=== PATIENT | female | born 1975 | race Caucasian/White ===

== ENCOUNTER 2024-04-20 00:07 | Observation (INO) ==
[2024-04-20 00:55] LABS: Hematocrit (blood only) 41.4 % (37.0-47.0); Hemoglobin 14.4 g/dl (12.0-16.0); Mean Corpuscular Hemoglobin 31.3 pg (25.0-34.0); Mean Corpuscular Hgb Conc 34.8 g/dL (32.0-36.0); Mean Platelet Volume 9.1 fL (9.4-12.4); Platelet Count 431 K/uL (130-400); RDW Coefficient of Variation 13.5 % (11.5-14.5); RDW Standard Deviation 44.5 fL (36.4-46.3)
[2024-04-20 00:58] LABS: Appearance Urine Turbid (Clear); Bacteria Urine Automated None Seen (None Seen); Bilirubin Urine Negative (Negative); Blood Urine Negative (Negative); Cast Urine Automated 0-2 /lpf (0-2); Color Urine Yellow; Glucose Urine UA Negative (Negative); Ketones Urine Negative (Negative); Leukocyte Esterase Urine Negative (Negative); Nitrite Urine Negative (Negative); Protein Urine Trace (Negative); RBC Urine Automated 0-2 /hpf (0-2); Specific Gravity Urine 1.015 (1.000-1.030); Urobilinogen Urine Negative (Negative); WBC Urine Automated 0-5 /hpf (0-5); pH Urine >= 9.0 (4.5-7.5)
[2024-04-20 01:10] LABS: Albumin Level 4.3 gm/dl (3.4-5.0); Bilirubin,Total 1.5 mg/dl (0.2-1.0); Calcium 9.3 mg/dl (8.6-10.3); Potassium 3.6 mmol/L (3.5-5.1)
[2024-04-20 01:16] LABS: Albumin Globulin Ratio 1.6 (0.9-2); Creatinine Clr Calc Pharmacy 62.1 ml/min; Globulin 2.7 gm/dl (2.5-4.0)
[2024-04-20 01:21] LABS: Pregnancy Test, Serum Negative (Negative)
[2024-04-20 01:50] LABS: Basophils # (auto) 0.07 K/uL (0.00-0.20); Basophils % (auto) 0.3 %; Eosinophils # (auto) 0.02 K/uL (0.00-0.50); Eosinophils % (auto) 0.1 %; Lymphocytes # (auto) 1.36 K/uL (1.20-3.40); Lymphocytes % (auto) 5.5 %; Neutrophils # (auto) 21.45 K/uL (1.40-6.50); Neutrophils % (auto) 86.1 %; Polychromasia 1+
[2024-04-20] MEDS: HYDROmorphone INJ 0.5 MG/0.5 ML SYR IV STA (02:29)
[2024-04-20] MEDS: ONDANSETRON INJ 2 MG/ML 2 ML VIAL IV STA (02:29)
[2024-04-20] MEDS: KETOROLAC TROMETHAMINE 15 MG/ML VIAL IV STA (02:29)
--- NOTE | 2024-04-20 02:32 | Emergency Department Note ---
Impression & Plan Acute cholecystitis, Elevated LFTs Admit to the [facility] ED Provider Note NAME: SHELTON CESPEDES AGE: 48 SEX: Female INFORMANT: Patient ED PROVIDER(S): Lindsey Murillo DO CHIEF COMPLAINT: Upper abdominal pain PLAN: Disposition: Admit to the [facility] MEDICAL DECISION MAKING: this is a 48-year-old female patient presents emergency department with sudden onset of upper abdominal pain approximately 3 hours ago. Patient then became nauseated and was vomiting acid. She describes having some heartburn after eating fried food earlier this evening. she denies ever having Pain like this in the past. Laboratory studies reveal a white blood cell count of 24.9. H&H were stable. Total bilirubin was 1.5. AST was 395. ALT of 250. Alk phos was 88. Lipase was normal. Urinalysis revealed no signs of infection or significant hematuria. Patient's pain was managed with IV Dilaudid and Toradol. She was bolused with 30 mL/kg of IV fluids per septic protocol. She was treated with IV Zosyn. Patient remained hemodynamically stable. I discussed the case with Dr. Benavides from general surgery and the [facility] and they will consult with GI. Care/management discussed with: cancer registry manager, [facility]ist, general surgery on-call Triage Nursing notes: reviewed and agree With them. Vital Signs: reviewed and unremarkable Differential Diagnosis: acute cholecystitis, pancreatitis, choledocholithiasis, ulcerative disease, perforated viscus, ureteral colic, colitis, gastritis Diagnostics, independently interpreted by me: ECG: Normal sinus rhythm at a rate of [address] segment elevation or signs of ischemia. There is no ectopy. Cardiac Monitoring: normal sinus rhythm at a rate of 71 Imaging studies: right upper quadrant ultrasound: As per [facility] HPI: 48 year old Female arrives for evaluation of upper abdominal pain. she describes sudden onset of upper abdominal pain approximately 3 hours ago. Patient then became nauseated and was vomiting acid. She describes having some heartburn after eating fried food earlier this evening. PAST MEDICAL HISTORY: Hypothyroidism, numbness in her left upper extremity which is being worked up PAST SURGICAL HISTORY: None, SOCIAL HISTORY: Former smoker, HOME MEDICATIONS: See list ALLERGIES: None VITALS: See Below PHYSICAL EXAMINATION: HEENT: Head - normocephalic and atraumatic. Pupils are equal, round, and reactive to light. Extraocular eye muscles are intact, and sclera are anicteric. Nose - moist nasal mucosa without discharge. Mouth - moist buccal mucosa. Oropharynx is nonerythematous and there is no tonsillar exudate or edema noted. Neck: Supple; no cervical and adenopathy or thyromegaly Heart: Regular rate and rhythm. There is a normal S1 and S2 with no murmurs, clicks, or gallops appreciated. Lungs: Clear to auscultation bilaterally with no wheezes, rales, or rhonchi. Abdomen: Soft, exquisite tenderness to palpation in the epigastrium and right upper quadrant with moderate guarding but no rebound or rigidity noted. There are no palpable pulsatile masses or hepatosplenomegaly. Extremities: No evidence of cyanosis, clubbing, or edema. There are easily palpable peripheral pulses. Skin: warm and dry with good turgor and no rashes. Emergency Department treatment: retail pharmacy manager, IV normal saline, IV Zofran, IV Toradol, IV Dilaudid, IV Zosyn Emergency department course: The patient was evaluated in room B-7. A complete history and physical was quickly performed as the patient was in severe pain. An order was placed for continuous cardiac monitoring. The patient was in a normal sinus rhythm at a rate of 71. Twelve-lead EKG was obtained as described above. Patient was medicated with IV Zofran, IV Toradol and IV Dilaudid for her severe pain. She then went for ultrasound of the right upper quadrant to evaluate her gallbladder. This is described below. Upon return from radiology, the patient was noted to have a white blood cell count of greater than 24,000. A septic protocol was then performed and the patient was bolused with 30 mL/kg of IV fluids and started on IV Zosyn after blood cultures were obtained. Patient's blood pressure remained stable and she was much more comfortable after having received the IV analgesia. I discussed the case with the general surgeon on-call-Dr. Benavides and he agreed with discussing the case with internal medicine for admission and also recommended an MRCP and consulting GI because of the elevated LFTs. I discussed this with the [facility] Hospitalist. The patient remained hemodynamically stable and comfortable. Past Med/Surg History Problem List (Updated 04/20/24 @ 16:22 by Lindsey Murillo DO) Encounter for pre-operative examination Elevated LFTs (Acute) Acute cholecystitis (Acute) Medical History (Updated 04/20/24 @ 16:22 by Lindsey Murillo DO) History of use of contraceptive intrauterine device (IUD) Quit smoking within past year Hypothyroid Surgical History (Updated 04/20/24 @ 09:22 by John Aponte MD) Hx of colonoscopy Social History Smoking Status: Former smoker Feels Safe at Home: Yes Allergies Allergies Allergy/AdvReac Type Severity Reaction Status Date / Time No Known Allergies Allergy Unverified 04/20/24 09:13 Home Meds Home Medications Medication Instructions Recorded Confirmed levothyroxine 75 mcg tablet 75 mcg PO DAILY 04/20/24 04/20/24 Results & Data (ED) Vital Signs Vital Signs - 24 hr 04/20/24 00:15 04/20/24 01:57 04/20/24 01:57 Temperature 36.4 C L Temperature Source Temporal Artery Scan Pulse Rate 106 H 71 72 Pulse Rate [Apical] Pulse Rate from SpO2 Sensor Pulse Rhythm Regular Regular Pulse Strength Normal Respiratory Rate 18 19 Respiratory Effort / Characteristics Non-Labored Spontaneous Respiratory Depth Normal Respiratory Pattern Regular Blood Pressure 120/62 Blood Pressure [Right Arm] Blood Pressure Mean 81 Blood Pressure Mean [Right Arm] Blood Pressure Position Sitting Pulse Oximetry 97 98 Oxygen Delivery Method Room Air Room Air Oxygen Flow Rate Sepsis Recent Fever Within 48 Hours No Sepsis New/Unexplained Change in Mental Status N/A Sepsis Action Taken by Nursing No Action Required 04/20/24 02:01 04/20/24 02:30 04/20/24 02:42 Temperature Temperature Source Pulse Rate 80 78 78 Pulse Rate [Apical] Pulse Rate from SpO2 Sensor 79 75 Pulse Rhythm Regular Pulse Strength Respiratory Rate 17 24 22 Respiratory Effort / Characteristics Respiratory Depth Respiratory Pattern Blood Pressure 112/58 L 99/68 L Blood Pressure [Right Arm] Blood Pressure Mean 65 80 Blood Pressure Mean [Right Arm] Blood Pressure Position Pulse Oximetry 98 98 98 Oxygen Delivery Method Room Air Oxygen Flow Rate 0 Sepsis Recent Fever Within 48 Hours Sepsis New/Unexplained Change in Mental Status Sepsis Action Taken by Nursing 04/20/24 03:55 04/20/24 04:56 04/20/24 06:03 Temperature Temperature Source Pulse Rate 73 Pulse Rate [Apical] 80 75 Pulse Rate from SpO2 Sensor Pulse Rhythm Pulse Strength Respiratory Rate 20 20 Respiratory Effort / Characteristics Non-Labored Non-Labored Respiratory Depth Normal Normal Respiratory Pattern Blood Pressure Blood Pressure [Right Arm] 107/69 114/77 Blood Pressure Mean Blood Pressure Mean [Right Arm] 81 89 Blood Pressure Position Pulse Oximetry 96 98 Oxygen Delivery Method Room Air Room Air Oxygen Flow Rate Sepsis Recent Fever Within 48 Hours Sepsis New/Unexplained Change in Mental Status Sepsis Action Taken by Nursing 04/20/24 06:06 Temperature Temperature Source Pulse Rate Pulse Rate [Apical] 68 Pulse Rate from SpO2 Sensor Pulse Rhythm Pulse Strength Respiratory Rate 20 Respiratory Effort / Characteristics Non-Labored Respiratory Depth Normal Respiratory Pattern Blood Pressure Blood Pressure [Right Arm] Blood Pressure Mean Blood Pressure Mean [Right Arm] Blood Pressure Position Pulse Oximetry 98 Oxygen Delivery Method Room Air Oxygen Flow Rate Sepsis Recent Fever Within 48 Hours Sepsis New/Unexplained Change in Mental Status Sepsis Action Taken by Nursing Laboratory Data 04/20/24 10:09 04/20/24 10:09 Lab Results 04/20/24 04/20/24 04/20/24 Range/Units 00:26 03:47 06:12 WBC 24.90 H (4.8-10.8) K/ul RBC 4.60 (4.20-5.40) M/uL Hgb 14.4 (12.0-16.0) g/dl Hct 41.4 (37.0-47.0) % MCV 90.0 (80.0-100.0) fL MCH 31.3 (25.0-34.0) pg MCHC 34.8 (32.0-36.0) g/dL RDW Std Deviation 44.5 (36.4-46.3) fL RDW Coeff of Raj 13.5 (11.5-14.5) % Plt Count 431 H (130-400) K/uL MPV 9.1 L (9.4-12.4) fL Immature Gran % (Auto) 2.0 % Neut % (Auto) 86.1 % Lymph % (Auto) 5.5 % [place] % (Auto) 6.0 % Eos % (Auto) 0.1 % Baso % (Auto) 0.3 % Neut # (Auto) 21.45 H (1.40-6.50) K/uL Lymph # (Auto) 1.36 (1.20-3.40) K/uL [place] # (Auto) 1.50 H (0.11-0.59) K/uL Eos # (Auto) 0.02 (0.00-0.50) K/uL Baso # (Auto) 0.07 (0.00-0.20) K/uL Immature Gran # (Auto) 0.50 H (0.01-0.20) K/uL Polychromasia 1+ Sodium 138 (136-145) mmol/L Potassium 3.6 (3.5-5.1) mmol/L Chloride 102 (98-107) mmol/L Carbon Dioxide 28 (21-32) mmol/L Anion Gap 8 (3-11) BUN 17 (6-23) mg/dl Creatinine 1.00 (0.6-1.2) mg/dl Est Cr Clr Drug Dosing 62.1 ml/min eGFR 69.93 BUN/Creatinine Ratio 17.0 (10-20) Glucose 132 H (70-99(Fasting)) mg/dl Lactate 2.2 H* 1.8 (0.4-2.0) mmol/L Calcium 9.3 (8.6-10.3) mg/dl Total Bilirubin 1.5 H (0.2-1.0) mg/dl AST 395 H (13-39) U/L ALT 250 H (7-52) U/L Alkaline Phosphatase 88 (34-104) U/L Total Protein 7.0 (6.0-8.3) gm/dl Albumin 4.3 (3.4-5.0) gm/dl Globulin 2.7 (2.5-4.0) gm/dl Albumin/Globulin Ratio 1.6 (0.9-2) Lipase 33 (11-82) U/L Procalcitonin < 0.02 (0-0.5) ng/ml HCG, Qual Negative (Negative) Urine Color Yellow Urine Appearance Turbid A (Clear) Urine pH >= 9.0 H (4.5-7.5) Ur Specific [place] 1.015 (1.000-1.030) Urine Protein Trace H (Negative) Urine Glucose (UA) Negative (Negative) Urine Ketones Negative (Negative) Urine Blood Negative (Negative) Urine Nitrite Negative (Negative) Urine Bilirubin Negative (Negative) Urine Urobilinogen Negative (Negative) Ur Leukocyte Esterase Negative (Negative) Urine WBC (Auto) 0-5 (0-5) /hpf Urine RBC (Auto) 0-2 (0-2) /hpf U Hyaline Cast (Auto) 0-2 (0-2) /lpf U Epithel Cells (Auto) 3-5 H (0-2) /hpf Urine Bacteria (Auto) None Seen (None Seen) Administered Medications Sodium Chloride (Nss) 1,000 mls @ 125 mls/hr IV .Q8H [facility] Stop: 04/21/24 07:44 Last Admin: 04/20/24 08:35 Dose: 125 mls/hr Documented By: SRL Piperacillin Sod/Tazobactam Sod (Zosyn) 4.5 gm in 100 mls @ 25 mls/hr IV Q8H [facility]; Protocol Stop: 04/30/24 10:59 Last Admin: 04/20/24 12:04 Dose: 25 mls/hr Documented By: SRL Levothyroxine Sodium (Levothyroxine Sodium 75 Mcg Tablet) 75 mcg PO DAILYBB [facility] Stop: 05/20/24 09:05 Last Admin: 04/20/24 09:48 Dose: 75 mcg Documented By: SRL Discontinued Medications Hydromorphone HCl (Hydromorphone Inj 0.5 Mg/0.5 Ml Syr) 0.5 mg IV NOW [facility] Stop: 04/20/24 02:26 Last Admin: 04/20/24 02:29 Dose: 0.5 mg Documented By: MITA Sodium Chloride (Nss) 1,000 mls @ 999 mls/hr IV .Q1H1M ONE Stop: 04/20/24 04:24 Last Infusion: 04/20/24 04:42 Dose: Infused Documented By: Admin: 04/20/24 03:58 Dose: 999 mls/hr Documented By: ES Piperacillin Sod/Tazobactam Sod (Zosyn) 4.5 gm in 100 mls @ 200 mls/hr IV NOW ONE; Protocol Stop: 04/20/24 03:53 Last Infusion: 04/20/24 04:41 Dose: Infused Documented By: Admin: 04/20/24 04:15 Dose: 200 mls/hr Documented By: ES Sodium Chloride (Nss) 1,000 mls @ 999 mls/hr IV .Q1H1M ONE Stop: 04/20/24 05:13 Last Infusion: 04/20/24 05:19 Dose: Infused Documented By: Admin: 04/20/24 04:17 Dose: 999 mls/hr Documented By: ES Ketorolac Tromethamine (Ketorolac Tromethamine 15 Mg/Ml Vial) 15 mg IV NOW STA Stop: 04/20/24 02:26 Last Admin: 04/20/24 02:29 Dose: 15 mg Documented By: MITA Lorazepam (Lorazepam 2 Mg/1 Ml Vial) 0.5 mg IV NOW STA Stop: 04/20/24 06:49 Last Admin: 04/20/24 07:11 Dose: 0.5 mg Documented By: SRL Lorazepam (Lorazepam 0.5 Mg Tab) 0.5 mg PO ONE ONE Stop: 04/20/24 07:02 Last Admin: 04/20/24 07:09 Dose: Not Given Documented By: SRL Miscellaneous Information (Patient's Allergy Info Needs Entered) 1 each N/A NOW STA Stop: 04/20/24 09:10 Last Admin: 04/20/24 12:03 Dose: Not Given Documented By: L Ondansetron HCl (Ondansetron Inj 2 Mg/Ml 2 Ml Vial) 4 mg IV NOW STA Stop: 04/20/24 02:26 Last Admin: 04/20/24 02:29 Dose: 4 mg Documented By: MITA Imaging Data Radiologist's Impression: Gallbladder Ultrasound 04/20/24 02:25 EXAM: US gallbladder CLINICAL HISTORY: HX: NO PREV. RUQ PAIN. VOMITING. ELEVATED LFTs AND WBC. TECHNIQUE: Ultrasound of the gallbladder was performed in B-mode and color Doppler. COMPARISON: None. FINDINGS: Pancreas not visualized due to overlying bowel gas. The liver is seen enlarged measuring 17.6 cm with increased parenchymal echogenicity. A small calcified focus is seen within the right lobe of the liver measuring 3 x 3 x 4 mm. The portal vein is seen patent hepatopetal flow. The common bile duct is not dilated measuring 5.7 mm. Extrahepatic part of the common bile duct is not visualized due to increased bowel gas. The gallbladder is seen distended with multiple stones seen within. The gallbladder is seen measuring 9.4 cm in longitudinal diameter. Increased gallbladder wall thickness measuring up to 7 mm at some parts of the gallbladder. Possible pericholecystic fluid is noted. Torrez sign could not be evaluated as the patient took medication. The right kidney is seen within normal limits. Normal blood flow seen within the right kidney. No hydronephrosis calculi seen within the right kidney IMPRESSION: 1. Acute calcular cholecystitis. 2. Fatty enlarged liver. Right hepatic lobe small calcified focus. 3. Clinical correlation is advised. Electronically signed by Carol Francis 04-20-2024 05:04 AM Cholangiopancreatography MRI 04/20/24 05:05 EXAM: MR MRCP CLINICAL HISTORY: Upper abdominal pain across the abdomen after fried foods. no other complaints. dld TECHNIQUE: Multiplanar multisequence of the MRI of the abdomen MRCP without intravenous contrast was performed. COMPARISON: US on 04/20/2024. FINDINGS: Gallbladder: Normal size. Multiple gallstones were noted adjacent to the gallbladder neck measuring up to 8mm. Gallladder wall appreciation is limited in these sequences. Bile Ducts: Intrahepatic and extrahepatic bile ducts are normal in caliber. The common bile duct is normal in caliber measuring up to 3.8mm. with no evidence of strictures or filling defects. No evidence of choledocholithiasis. Pancreatic Duct: No evidence of ductal dilatation or filling defects. IMPRESSION: 1. The gallbladder is normal in size. Multiple gallstones were noted adjacent to the gallbladder neck measuring up to 8mm, these correlate with the findings in the US on 04/20/2024. 2. No evidence of biliary or pancreatic ductal abnormalities. Electronically signed by Carol Francis 04-20-2024 09:50 AM Discharge Plan Visit Data Chief Complaint: Abdominal Pain Stated Complaint: ABD PAINS ED Provider: Lindsey Murillo Discharge Problem: Acute cholecystitis, Elevated LFTs Patient Disposition: Admitted As Inpatient Discharge Instructions Interventions: ED Discharge Assessment Last Done: 04/20/24 13:34
[2024-04-20] MEDS: SODIUM CHLORIDE 0.9% 1,000 ML IV ONE ×2 (03:58→04:17)
[2024-04-20] MEDS: PIPERACILLIN/TAZOBACTAM 4.5 GM/100 ML BAG IV ONE (04:15)
--- NOTE | 2024-04-20 05:04 | Ultrasound Report ---
EXAM: US gallbladder CLINICAL HISTORY: HX: NO PREV. RUQ PAIN. VOMITING. ELEVATED LFTs AND WBC. TECHNIQUE: Ultrasound of the gallbladder was performed in B-mode and color Doppler. COMPARISON: None. FINDINGS: Pancreas not visualized due to overlying bowel gas. The liver is seen enlarged measuring 17.6 cm with increased parenchymal echogenicity. A small calcified focus is seen within the right lobe of the liver measuring 3 x 3 x 4 mm. The portal vein is seen patent hepatopetal flow. The common bile duct is not dilated measuring 5.7 mm. Extrahepatic part of the common bile duct is not visualized due to increased bowel gas. The gallbladder is seen distended with multiple stones seen within. The gallbladder is seen measuring 9.4 cm in longitudinal diameter. Increased gallbladder wall thickness measuring up to 7 mm at some parts of the gallbladder. Possible pericholecystic fluid is noted. Torrez sign could not be evaluated as the patient took medication. The right kidney is seen within normal limits. Normal blood flow seen within the right kidney. No hydronephrosis calculi seen within the right kidney IMPRESSION: 1. Acute calcular cholecystitis. 2. Fatty enlarged liver. Right hepatic lobe small calcified focus. 3. Clinical correlation is advised. Electronically signed by Carol Francis 04-20-2024 05:04 AM
--- NOTE | 2024-04-20 06:30 | History & Physical Report ---
Date of Service April 20, 2024 Assessment & Plan (1) Acute cholecystitis: Plan: 48-year-old female with past medical history significant for mixed rhinitis, presence of intrauterine contraceptive device, pruritic disorder, tobacco use disorder presents with severe abdominal pain. The pain is across upper abdomen. Denies nausea. No fevers. Pain was very severe. Normal bowel and bladder movements. No chest pain or shortness of breath. No cough. No headache. No runny nose or sore throat. Currently resting comfortably and hemodynamically stable. Acute cholecystitis Elevated LFTs Gallbladder ultrasound showing acute calcular cholecystitis. Right hepatic lobe small calcified focus. Patient getting MRCP Blood pressure was soft and required fluid bolus N.p.o., IV fluids, IV Dilaudid., IV Zosyn GI and surgery consult Close monitor Hypothyroidism On Synthyroid DVT prophylaxis SCDs for now Disposition Medical floor Full code History of Present Illness Chief Complaint: Abdominal pain Primary Care Provider: Josie Ha MD 48-year-old female with past medical history significant for mixed rhinitis, presence of intrauterine contraceptive device, pruritic disorder, tobacco use disorder presents with severe abdominal pain. The pain is across upper abdomen. Denies nausea. No fevers. Pain was very severe. Normal bowel and bladder movements. No chest pain or shortness of breath. No cough. No headache. No runny nose or sore throat. Currently resting comfortably and hemodynamically stable. Past medical history. As mentioned above Past surgical history. Colonoscopy. IUD. Social history. Quit smoking 2022. Smoked 1 pack a day for 5 years. Alcohol s ocial drinking. No drug use. Family history. Mother has allergic rhinitis. Asthma. Hypertension. Skin cancer. Father had lung cancer. Maternal aunt had breast cancer. Cousin had breast cancer. Paternal grandmother had breast cancer. Leukemia. Paternal grandfather had cirrhosis. Maternal grandmother had ovarian cancer. Maternal uncle had lung cancer. Home Medications Medication Instructions Recorded Confirmed Type levothyroxine 75 mcg tablet 75 mcg PO DAILY 04/20/24 04/20/24 History Past Med/Surg History Problem List (Updated 04/20/24 @ 08:24 by Antoni Benavides DO) Elevated LFTs Acute cholecystitis Social History Smoking Status: Former smoker Feels Safe at Home: Yes Review of Systems Review of Systems: All systems reviewed & are unremarkable except as noted in HPI & below Physical Exam Physical Exam: General- Not in distress. Head- atraumatic Eyes- PERRL. ENT- oropharynx clear Neck- supple, no JVD. Lungs- clear to auscultation no wheezing or crackles. Heart- regular rate and rhythm; no murmur, no gallop. Abdomen- normal bowel sounds, soft, nontender, no distension Extremities- no pretibial edema, no erythema seen Neuro- alert, oriented PERRL, no facial palsy; no dysarthria; moves extremities Results & Data Results & Data Vital Signs (Past 12 Hours) Vital Signs Temp Pulse Pulse Resp BP BP Pulse Ox 04/20/24 06:06 68 20 98 04/20/24 06:03 73 04/20/24 04:56 75 20 114/77 98 04/20/24 03:55 80 20 107/69 96 04/20/24 02:42 78 22 98 04/20/24 02:30 78 24 99/68 L 98 04/20/24 02:01 80 17 112/58 L 98 04/20/24 01:57 72 04/20/24 01:57 71 19 98 04/20/24 00:15 36.4 C L 106 H 18 120/62 97 O2 Del Method O2 Flow Rate 04/20/24 06:06 Room Air 04/20/24 06:03 04/20/24 04:56 Room Air 04/20/24 03:55 Room Air 04/20/24 02:42 Room Air 0 04/20/24 02:30 04/20/24 02:01 04/20/24 01:57 04/20/24 01:57 Room Air 04/20/24 00:15 Room Air Diagnostic Findings Laboratory Results WBC 24.90 K/ul (4.8-10.8) H 04/20/24 00:26 RBC 4.60 M/uL (4.20-5.40) 04/20/24 00:26 Hgb 14.4 g/dl (12.0-16.0) 04/20/24 00:26 Hct 41.4 % (37.0-47.0) 04/20/24 00:26 MCV 90.0 fL (80.0-100.0) 04/20/24 00:26 MCH 31.3 pg (25.0-34.0) 04/20/24 00: MCHC 34.8 g/dL (32.0-36.0) 04/20/24: RDW Std Deviation 44.5 fL (36.4-46.3) 04/20/24: RDW Coeff of Raj 13.5 % (11.5-14.5) 04/20/24: Plt Count 431 K/uL (130-400) H 04/20/24 00: MPV 9.1 fL (9.4-12.4) L 04/20/24: Immature Gran % (Auto) 2.0 % 04/20/24: Neut % (Auto) 86.1 % 04/20/24: Lymph % (Auto) 5.5 % 04/20/24: Hooker % (Auto) 6.0 % 04/20/24: Eos % (Auto) 0.1 % 04/20/24: Baso % (Auto) 0.3 % 04/20/24 00: Neut # (Auto) 21.45 K/uL (1.40-6.50) H 04/20/24 00: Lymph # (Auto) 1.36 K/uL (1.20-3.40) 04/20/24 00: Hooker # (Auto) 1.50 K/uL (0.11-0.59) H 04/20/24 00: Eos # (Auto) 0.02 K/uL (0.00-0.50) 04/20/24 00: Baso # (Auto) 0.07 K/uL (0.00-0.20) 04/20/24 00: Immature Gran # (Auto) 0.50 K/uL (0.01-0.20) H 04/20/24 00: Polychromasia 1+ 04/20/24: Sodium 138 mmol/L (136-145) 04/20/24: Potassium 3.6 mmol/L (3.5-5.1) 04/20/24 00: Chloride 102 mmol/L (98-107) 04/20/24 00:26 Carbon Dioxide 28 mmol/L (21-32) 04/20/24 00:26 Anion Gap 8 (3-11) 04/20/24 00: BUN 17 mg/dl (6-23) 04/20/24 00: Creatinine 1.00 mg/dl (0.6-1.2) 04/20/24 00: Est Cr Clr Drug Dosing 62.1 ml/min 04/20/24 00: eGFR 69.93 04/20/24 00: BUN/Creatinine Ratio 17.0 (10-20) 04/20/24 00: Glucose 132 mg/dl (70-99(Fasting)) H 04/20/24 00: Lactate 1.8 mmol/L (0.4-2.0) 04/20/24 06:12 Calcium 9.3 mg/dl (8.6-10.3) 04/20/24 00: Total Bilirubin 1.5 mg/dl (0.2-1.0) H 04/20/24 00: AST 395 U/L (13-39) H 04/20/24 00: ALT 250 U/L (7-52) H 04/20/24 00: Alkaline Phosphatase 88 U/L (34-104) 04/20/24 00: Total Protein 7.0 gm/dl (6.0-8.3) 04/20/24 00: Albumin 4.3 gm/dl (3.4-5.0) 04/20/24 00: Globulin 2.7 gm/dl (2.5-4.0) 04/20/24 00: Albumin/Globulin Ratio 1.6 (0.9-2) 04/20/24 00: Lipase 33 U/L (11-82) 04/20/24 00: Procalcitonin < 0.02 ng/ml (0-0.5) 04/20/24 00: HCG, Qual Negative (Negative) 04/20/24: Urine Color Yellow 04/20/24 00: Urine Appearance Turbid (Clear) A 04/20/24 00: Urine pH >= 9.0 (4.5-7.5) H 04/20/24 00: Ur Specific Lerna 1.015 (1.000-1.030) 01/18/25 00:26 Urine Protein Trace (Negative) H 04/20/24 00:26 Urine Glucose (UA) Negative (Negative) 04/20/24:26 Urine Ketones Negative (Negative) 04/20/24 00: Urine Blood Negative (Negative) 04/20/24 00:26 Urine Nitrite Negative (Negative) 04/20/24 00:26 Urine Bilirubin Negative (Negative) 04/20/24 00: Urine Urobilinogen Negative (Negative) 04/20/24 00: Ur Leukocyte Esterase Negative (Negative) 04/20/24 00:26 Urine WBC (Auto) 0-5 /hpf (0-5) 04/20/24: Urine RBC (Auto) 0-2 /hpf (0-2) 04/20/24: U Hyaline Cast (Auto) 0-2 /lpf (0-2) 04/20/24 00: U Epithel Cells (Auto) 3-5 /hpf (0-2) H 04/20/24 00:26 Urine Bacteria (Auto) None Seen (None Seen) 04/20/24 00: Impressions Gallbladder Ultrasound 04/20/24 02:25 EXAM: US gallbladder CLINICAL HISTORY: HX: NO PREV. RUQ PAIN. VOMITING. ELEVATED LFTs AND WBC. TECHNIQUE: Ultrasound of the gallbladder was performed in B-mode and color Doppler. COMPARISON: None. FINDINGS: Pancreas not visualized due to overlying bowel gas. The liver is seen enlarged measuring 17.6 cm with increased parenchymal echogenicity. A small calcified focus is seen within the right lobe of the liver measuring 3 x 3 x 4 mm. The portal vein is seen patent hepatopetal flow. The common bile duct is not dilated measuring 5.7 mm. Extrahepatic part of the common bile duct is not visualized due to increased bowel gas. The gallbladder is seen distended with multiple stones seen within. The gallbladder is seen measuring 9.4 cm in longitudinal diameter. Increased gallbladder wall thickness measuring up to 7 mm at some parts of the gallbladder. Possible pericholecystic fluid is noted. Torrez sign could not be evaluated as the patient took medication. The right kidney is seen within normal limits. Normal blood flow seen within the right kidney. No hydronephrosis calculi seen within the right kidney IMPRESSION: 1. Acute calcular cholecystitis. 2. Fatty enlarged liver. Right hepatic lobe small calcified focus. 3. Clinical correlation is advised. Electronically signed by Carol Francis 04-20-2024 05:04 AM ECG Additional Comments: ECG. Normal sinus rhythm rate of 82. Nonspecific T wave abnormality. QTc 441 Code Status & VTE Plan VTE Prophylaxis Plan VTE Prophylaxis will be ordered: Yes
[2024-04-20] MEDS: LORazepam 0.5 MG TAB PO ONE (07:09)
[2024-04-20] MEDS: LORazepam 2 MG/1 ML VIAL IV STA (07:11)
--- NOTE | 2024-04-20 07:34 | Electrocardiogram Report ---
Test Reason : Blood Pressure : */* mmHG Vent. Rate : 82 BPM Atrial Rate : 82 BPM P-R Int : 128 ms QRS Dur : 94 ms QT Int : 378 ms P-R-T Axes : 76 78 90 degrees QTcB Int : 441 ms Normal sinus rhythm Nonspecific T wave abnormality Abnormal ECG No previous ECGs available Confirmed by Juan Ramon Moore ([id number]) on 04/20/2024 7:34:33 AM Referred By: REFERRED SELF Confirmed By: Juan Ramon Moore
--- NOTE | 2024-04-20 08:26 | Surgery Consultation ---
Date of Consultation April 20, 2024 Assessment & Plan (1) Acute cholecystitis: Her ultrasound images and results were personally viewed and interpreted by myself Based on her sonographic and physical exam findings this is consistent with acute cholecystitis She does have elevated LFTs and her CBD is almost 6 mm, will order an MRCP stat to rule out choledocholithiasis Will tentatively put her on the schedule for laparoscopic cholecystectomy possible open today pending her MRCP results Keep n.p.o., give IV antibiotics Would have GI on board in case her LFTs continue to rise or if MRCP shows choledocholithiasis (2) Elevated LFTs: History of Present Illness Reason for Consultation: Acute cholecystitis History of Present Illness This is a 48-year-old female presenting to the emergency department overnight with sharp epigastric and right upper quadrant pain without radiation. This started after having some fried chicken and fish last evening. No aggravating or relieving factors. Has any previous abdominal surgeries. She denies any nausea or vomiting. She denies any fevers or chills. She denies any jaundice or scleral icterus. Home Medications Medication Instructions Recorded Confirmed Type levothyroxine 75 mcg tablet 75 mcg PO DAILY 04/20/24 04/20/24 History Patient History Social History Smoking Status: Former smoker Feels Safe at Home: Yes Review of Systems Constitutional: no fever and no chills Eyes: no blind spots and no dry eyes Ear, Nose, Mouth, Throat: no ear pain and no hearing loss Respiratory: no cough and no dyspnea Cardiovascular: no chest pain and no dyspnea on exertion Gastrointestinal: + abdominal pain; no nausea, no vomiting , no constipation and no diarrhea/loose stools Genitourinary: no dysuria and no urinary urgency Musculoskeletal: no back pain and no neck pain Integumentary: no acne and no boil Neurologic: no headache(s) and no memory loss Psychiatric: no behavioral changes and no depression Hematologic / Lymphatic: no easy bleeding and no easy bruising Physical Exam Constitutional: WD/WN, vitals as above Eyes: PERRL, conjunctivae normal, anicteric sclerae ENMT: external ear and nose normal, oropharynx normal Neck: trachea midline, no thyromegaly Respiratory: normal respiratory effort, lungs clear to auscultation Cardiovascular: RRR, no murmur, no edema Gastrointestinal (Abdomen): Inspection/Auscultation: abdomen normal to inspection; abdomen not distended Percussion/Palpation: + abdomen tender (Right upper quadrant) and abdomen soft; no guarding and no hernia Musculoskeletal: no cyanosis or clubbing, extremities motor strength 5/5 Skin: no rashes, warm and dry Neurologic: PERRL, EOMI, accommodation nl, no face palsy, no dysarthria Psychiatric: A+Ox3, euthymic affect Results & Data Vital Signs (Past 12 Hours) Vital Signs Temp Pulse Pulse Resp BP BP Pulse Ox 04/20/24 06:06 68 20 98 04/20/24 06:03 73 04/20/24 04:56 75 20 114/77 98 04/20/24 03:55 80 20 107/69 96 04/20/24 02:42 78 22 98 04/20/24 02:30 78 24 99/68 L 98 04/20/24 02:01 80 17 112/58 L 98 04/20/24 01:57 72 04/20/24 01:57 71 19 98 04/20/24 00:15 36.4 C L 106 H 18 120/62 97 O2 Del Method O2 Flow Rate 04/20/24 06:06 Room Air 04/20/24 06:03 04/20/24 04:56 Room Air 04/20/24 03:55 Room Air 04/20/24 02:42 Room Air 0 04/20/24 02:30 04/20/24 02:01 04/20/24 01:57 04/20/24 01:57 Room Air 04/20/24 00:15 Room Air PG Care Time/CCT Total # of Minutes Spent Total Time Spent with Patient: Total time spent is greater than 50% in coordination of care (as documented) at patient's floor/unit and/or counseling patient: Coding Level of Care Code 81458 IN/OBS CONSULT LVL 5,80M Diagnoses Acute cholecystitis K81.0 Elevated LFTs R79.89
--- OUTSIDE RECORDS SUMMARY | 2024-04-20 08:29 | External Medical Summary | Summary of Care ---
Author Name Unknown Organization [facility] Address [address] [place] [address] Phone [phone] Care Team Providers Care Package Delivery Room Service Runner Name Role Phone Josie Ha MD Primary Care Provider Reason for Visit * Reason Onset Date Comments Physical-Exam Pt here for year ly CPE today, has no current issues Medication Administration 02/19/2024 Flu an d/or Pneumo Inj Encounter Details Date Type Department Care Team (Late st Contact Info) Description 02/19/2024 1:40 PM EST Office Visit Family [facility] [address] [place] [address] Josie Ha MD [address] [place] [address] Well adult exam*; Need for prophylactic vaccination and inoculation against influenza; Screening cholesterol level; Screening for diabetes mellitus Allergies No known active allergiesdocumented as of this encounter (statuses as of 02/19/2024) Medications cetirizine (ZYRTEC) 10 MG Tablet Take 1 Tab by mouth daily. 30 Tab 11 12/22/19 17 Active diphenhydramine (BENADRYL) 25 MG Tablet Take 2 Tabs by mouth every 6 hours as needed (for worsening itching or rash/hives). 30 Tab 12/22/19 17 Active Naproxen 500 MG Oral Tablet (NAPROSYN)Indica tions:Intercosta l muscle pain Take 1 Tab by mouth 2 times a day as needed for Pain. With food 60 Tab 01/17/20 20 Active Multivitamin Adult Oral Tablet Take by mouth. Active Probiotic Acidophilus BioBeads Oral Capsule Take 1 Capsule by mouth in the morning and 1 Capsule at noon and 1 Capsule in the evening. Take with meals. Active Calcium 1000 + D 1000-20 MG-MCG Oral Tablet (Calcium Carb-Cholecalcif jessica) Take by mouth. Active Zepbound 10 MG/0.5ML Subcutaneous Solution Auto-injector Inject 10 mg under the skin once a week. 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 85 g 2 07/25/19 24 024 Discontinued predniSONE 10 MG Oral Tablet (Deltasone)Indic ations:Irritant contact dermatitis due to plants, except food Take 5 tabs for 2 days, 4 tabs for 2 days, 3 tabs for 2 days, 2 tabs for 2 days 1 tab for 2 days 30 Tablet 10/25/19 24 024 Discontinued documented as of this encounter (statuses as of 02/19/2024) Active Problems Problem Noted Date Diagnosed Date Mixed rhinitis 12/21/2016 Pruritic disorder 12/21/2016 Presence of intrauterine contraceptive device (I UD) 02/29/2016 Tobacco use disorder documented as of this encounter (statuses as of 02/19/2024) Resolved Problems Problem Noted Date Diagnosed Date Resolved Date Acne 04/28/2009 02/19/2024 Tobacco use disorder 09/22/2008 013 NONTOX UNINODULAR GOITER CONTRACEPT PILL SURVEILL documented as of this encounter (statuses as of 02/19/2024) Immunizations Name Administration Dates Next Due COVID-19 mRNA, LNP-s, No Pre serve, 2-Dose Series ([employer]) 03/05/2021,07/06/2020,06/14/2020 Seasonal Influenza Virus Vac cine, Unspecified Formulation 12/31/2020,01/15/2020 Seasonal Influenza, PF, 6 M & above, IM , (FluLaval or Fluzone) 02/17/2023,01/13/2022,01/15/2020 Seasonal Influenza, Trivalen t, (IIV3), PF, (Fluzone) 02/19/2024 TDAP (age 10 and older)(Boostrix) 06/17/2017 documented as of this encounter Social History Tobacco Use Types Packs/Day Years Used Date Smoking Tobacco: Former Cigarettes 1 5 0 06/15/2017 - 06/15/2022 Smokeless Tobacco: Never Tobacco Cessation:Counseling Given: Not Answered Comments:Quit and restarted many times Alcohol Use Standard Drinks/Week Comments Yes 0 (1 standard drink = 0.6 oz pur e alcohol) social PHQ-2 Answer Date Recorded PHQ Adult Total Score 0 02/17/2023 Hunger Vital Sign Answer Date Recorded Within the past 12 months, y ou worried that your food would run out before you got the money to buy more. Never true 02/02/20 24 Within the past 12 months, t he food you bought just didn't last and you didn't have money to get more. Never true 02/02/2024 Childcare Answer Date Recorded Do you feel overwhelmed with taking care of a child, family member or friend? No 02/02/2024 Does your family need help f inding childcare? (Household - for ages 0-17 years) Not on file 02/02/2024 Clothing Answer Date Recorded Have you been unable to get clothing when it was really needed? No 02/02/2024 Is your family able to get c lothes or diapers when needed? (Household - for ages 0-17 years) Not on file 02/02/2024 Personal Safety Answer Date Recorded Do you feel unsafe or have concerns for your saf ety? No 02/02/2024 Do you have concerns for you r family's safety? (Household - for ages 0-17 years) Not on file 02/02/2024 Utilities Answer Date Recorded Do you have trouble paying y our heating, water, or electric bill? No 02/02/2024 Is your family able to pay t he heat, water, or electric bill? (Household - for ages 0-17 years) Not on file 02/02/2024 Does your family have access to good internet? (Household - for ages 0-17 years) Not on file 02/02/2024 Employment Status Answer Date Recorded Are you unemployed or without regular income? No 02/02/2024 Does the household have a re gular source of income? (Household - for ages 0-17 years) Not on file 02/02/2024 Social Connections Answer Date Recorded How often do you feel lonely or isolated from th ose around you? Never 02/02/2024 Financial Resource Strain Answer Date R ecorded Do you have any trouble payi ng for your medications, or do you think you might in the future? No 02/02/2024 Does your family have troubl e paying for medicine? (Household - for ages 0-17 years) Not on file 02/02/2024 Transportation Needs Answer Date Record ed Do you have trouble getting a ride to medical visits or work? (Adult - for ages 18 years and over) Not on file 02/02/2024 Does your family have a hard time getting a ride to doctors visits? (Household - for ages 0-17 years) Not on file 02/02/2024 Has lack of transportation k ept you from medical appointments, meetings, work, or from getting things needed for daily living? Check all that apply. No 02/02/2024 Do you (or your family) have trouble finding or paying for a ride (transportation)? (Household - for ages 0-17 years) Not on file 02/02/2024 Housing Stability Answer Date Recorded Do you currently live in a s helter or have no steady place to sleep at night? No 02/02/2024 Do you think you are at risk of becoming homeless? (Adult - for ages 18 years and over) Not on file 02/02/2024 Does your family worry about paying for your home or becoming homeless? (Household - for ages 0-17 years) Not on file 1 04/03/2023 Are you homeless or worried that you might be in the future? No 02/02/2024 Are you (or your family) zachary eless or worried that you might be in the future? (Household - for ages 0-17 years) Not on file Food Insecurity Answer Date Recorded Do you need food for this week? No 02/02/2024 Are you able to get enough f ood for your family? (Household - for ages 0-17 years) Not on file 02/02/2024 Does your family need food t his week? (Household - for ages 0-17 years) Not on file 02/02/2024 Do you always have enough fo od for your family? (Household - for ages 0-17 years) Not on file 02/02/2024 Comments No Sex and Gender Information Value Date Recorded Sex Assigned at Female 02/13/2022 10:10 PM EST Legal Sex Female 6:03 AM EST Gender Identity Female 02/13/2022 10:10 PM EST Sexual Orientation Straight 02/13/2022 10 :10 PM EST Occupation Industry Job Start Date Job End Date Not on file Not on file Not on file Not on file documented as of this encounter Last Filed Vital Signs Vital Sign Reading Time Taken Comments Blood Pressure 122/80 02/19/2024 1:38 PM EST Pulse 65 02/19/2024 1:38 PM EST Temperature 36.4 C (97.5 F) 02/19/2024 1:38 PM ES T Respiratory Rate 16 02/19/2024 1:38 PM EST Oxygen Saturation - - Inhaled Oxygen Concentration - - Weight 67.6 kg (149 lb) 02/19/2024 1:38 PM EST Height 160 cm (5' 2.99") 02/19/2024 1:38 PM EST Body Mass Index 26.4 02/19/2024 1:38 PM EST documented in this encounter Patient Instructions * Patient Instructions* Concha Degroot LPN - 02/19/2024 1:41 PM EST ~~PATIENT INSTRUCTIONS FOR FLU SHOT~~ Possible side effects of influenza vaccine, (flu shot), are usually mild and include: 1. Soreness or redness at injection site 2. Low grade fever 3. Body aches You may use Tylenol/Acetaminophen as needed for these symptoms. LET YOUR DOCTOR KNOW IMMEDIATELY IF YOU HAVE DIFFICULTY BREATHING OR SWALLOWING, EXPERIENCE ITCHINGOF FEET OR HANDS, HAVE SWELLING OF EYES, FACE OR INSIDE OF NOSE. documented in this encounter Progress Notes * Josie Ha MD - 02/19/2024 1:55 PM EST Images from the original note were not included. Subjective Carmen Manzanares is a 48 year old female that presents for Physical-Exam (Pt here for yearly CPE today,has no current issues) and Medication Administration (Flu and/or Pneumo Inj) History of Present Illness The patient presents for a general check-up. She recently had an IUD replacement. The patient is currently on a weight loss program through [employer], which includes the medication Zepbound. She started the program in early 2023, but experienced some interruptions due to shortages of the medication. She is currently on a 10mg dose and has been discussing with a medical concierge about weaning off the medication, as she does not wish to be on it indefinitely. She reports eating less since starting the medication, but still maintains regular meals. She experienced low energy and constipation at one point, but these side effects have since resolved. For exercise, the patient primarily walks. She lost her dog earlier in the year, which was a significant emotional event for her, but has since gotten a new dog. She has a rowing machine and weights at home, but struggles with motivation to use them. She has successfully quit smoking for over a year and has reduced her alcohol intake since starting Zepbound. She reports generally good sleep, but s ometimes has difficulty staying asleep due to stress. The patient also mentions an unusual episode of chest pain a couple of months ago, which resolved with Prilosec and has not recurred. She suspects it may have been heartburn. Breast cancer screening normal mammogram 12/2023 Cervical cancer screening - normal cytology, negative HPV 03/2022 Colon cancer screening - colonoscopy due 2032 Full skin exam with Dermatology in July Current with eye doctor and dentist Current medications and allergies reviewed. Past medical history and problem list reviewed. Objective Vitals: 02/19/24 1338 Temp: 36.4 C (97.5 F) Pulse: 65 Resp: 16 BP: 122/80 BMI: 26.4 BP Readings from Last 3 Encounters: 02/19/24 122/80 02/16/24 120/82 02/17/23 100/74 Wt Readings from Last 3 Encounters: 02/19/24 67.6 kg (149 lb) 02/16/24 67.1 kg (148 lb) 02/17/23 76.3 kg (168 lb 3.2 oz) Physical Exam Vitals and nursing note reviewed. Constitutional: General: She is not in acute distress. Appearance: Normal appearance. She is not ill-appearing. HENT: Head: Normocephalic and atraumatic. Right Ear: Tympanic membrane, ear canal and external ear normal. There is no impacted cerumen. Left Ear: Tympanic membrane, ear canal and external ear normal. There is no impacted cerumen. Nose: Nose normal. Mouth/Throat: Mouth: Mucous membranes are moist. Pharynx: Oropharynx is clear. Eyes: General: No scleral icterus. Conjunctiva/sclera: Conjunctivae normal. Pupils: Pupils are equal, round, and reactive to light. Neck: Thyroid: No thyroid mass, thyromegaly or thyroid tenderness. Cardiovascular: Rate and Rhythm: Normal rate and regular rhythm. Heart sounds: No murmur heard. Pulmonary: Effort: Pulmonary effort is normal. Breath sounds: Normal breath sounds. Musculoskeletal: Right lower leg: No edema. Left lower leg: No edema. Lymphadenopathy: Cervical: No cervical adenopathy. Skin: General: Skin is warm and dry. Neurological: Mental Status: She is alert. Psychiatric: Mood and Affect: Mood normal. Behavior: Behavior normal. I have reviewed the following results: Lipid Panel and Hemoglobin A1C Assessment and Plan Assessment & Plan Weight Management -Encouraged to establish regular exercise habits, including higher intensity and muscle building exercises, in anticipation of discontinuing Zepbound. Tobacco Cessation Successful cessation for approximately 15 months. -Congratulated on successful cessation and encouraged to continue abstaining from tobacco use. -may be appropriate for lung cancer screening when she turns 51 General Health Maintenance Up-to-date on screenings including IUD replacement, mammogram, and colonoscopy. Received flu shot. Last cholesterol check in 2019. -Plan to check fasting glucose and cholesterol in 2024, orders to be placed in advance of next visit. Well adult exam (Primary) Need for prophylactic vaccination and inoculation against influenza - INFLUENZA VAC, TRIVALENT, (IIV3), PF, 0.5 ML (FLUZONE) Screening cholesterol level - LIPID PANEL WITH DIRECT LDL IF TG IS HIGH; Future; Expected date: 02/02/2025 Screening for diabetes mellitus - GLUCOSE; Future; Expected date: 02/02/2025 Wrap-Up Follow Up: Return in about 1 year (around 02/18/2025) for Return with [facility], Fasting Labs 2-5 Days Before Next Visit. | For: Return with [facility], Fasting Labs 2-5 Days Before Next Visit Time: I spent a total of 10-19 minutes (exact time 18 mins) on the date of service in preparation, delivery, and documentation of the care provided to Carmen Manzanares excluding any time spent in the performance of separately billed services. Text in this note was generated using an [employer] documentation service. I discussed the use of a device to record and summarize our discussion today. All persons present during the encounter consented to its use. * Concha Degroot LPN - 02/19/2024 1:41 PM EST PRE - ADMINISTRATION DOCUMENTATION Are you experiencing any cold symptoms or fever? No Have you had Guillain-Pinconning Syndrome (an illness that causes paralysis) within the last 6 weeks? No Have you had the flu shot in the past? YES Have you ever had a reaction to the flu shot? No Concha Degroot LPN, 02/19/2024 1:41 PM Immunization Administration Documentation Time Out Procedure Performed: Yes Patient Identified (Ask Name/Date of ): Yes Does the patient have a fever greater than 101 degrees today? No Patient allergic to latex? No VFC Stock: No Immunization(s) verified: Yes, Immunization Name: Flu, VIS Sheet(s) given: Yes Verified Side and Site: Yes Verified Shot(s) with Parent(s)/Patient: Yes documented in this encounter Plan of Treatment Upcoming Encounters Date Type Department Care Team ([facility] st Contact Info) Description 01/23/2025 9:20 AM EDT [facility] [address] [facility] [address] Colleen Barrera PA-C [address] [place] [address] [place] [address] 02/20/2025 10:20 AM EST Office Visit Family Practice [facility] [address] [place] [address] Josie Ha MD [address] [place] [address] Scheduled Orders Name Type Priority Associated Diagnoses Orde r Schedule GLUCOSE Lab Routine Screening for diabetes mellitus Expected: 02/02/2025 (Approximate), Expires: 02/18/2025 LIPID PANEL WITH DIRECT LDL IF TG IS HIGH Lab Routine Screening cholesterol level Expected: 02/02/2025 (Approximate), Expires: 02/18/2025 Scheduled Procedures Name Priority Associated Diagnoses Date/Ti me COLONOSCOPY FLEXIBLE PROXIMA L DIAGNOSTIC Recall Screening for colon cancer Health Maintenance Due Date Last Done Comments Hepatitis C Screening 1994 Hepatitis B Vaccine (1 of 3 - 19+ 3-dose series) 06/23/1995 Cologuard 2021 Fecal Occult Blood Test 2021 Sigmoidoscopy 2021 COVID-19 Vaccine ( season) 2023 03/05/2021, 07/06/2020, 06/14/2020 Depression Screening 02/18/2024 02/17/2023 Mammogram 11/30/2024 12/01/2023, 11/02, 11/29/2021, Additional history exists Lipid Panel 03/09/2025 03/09/2020 Pap Smear 03/10/2025 03/10/2022, 02/01, 11/09/2016, Additional history exists Diabetes Screening 11/22/2025 11/22/2022, 1 05/10/2019, 10/07/2003 Cervical Cancer Screening 03/10/2027 HPV/Co-Test 03/10/2027 03/10/2022 DTap/Tdap Vaccines (2 - Td or Tdap) 06/18/2027 06/17/2017 Colonoscopy 07/07/2032 07/07/2022, 07/07/2022 Colorectal Cancer Screening 07/07/2032 Influenza Vaccine (FLU shot) Completed , 02/17/2023, 01/13/2022, Additional history exists HPV (Gardasil) Vaccine Aged Out No lo nger eligible based on patient's age to complete this topic MENINGOCOCCAL (MENACTRA/MENVEO) Aged Out No longer eligible based on patient's age to complete this topic Pneumococcal Vaccine: Pediatrics (0 to 5 Years) and At-Risk Patients (6 to 64 Years) Aged Out No longer eligible based on patient's age to complete this topic documented as of this encounter Medical Devices Not on filedocumented as of this encounter Visit Diagnoses Diagnosis Well adult exam- Primary Routine general medical examination at a health care facility Need for prophylactic vaccination and inoculation against influenza Screening cholesterol level Screening for lipoid disorders Screening for diabetes mellitus documented in this encounter Care Teams Package Delivery Room Service Runner Relationship Specialty Start Date End Date Josie Ha MD [address] [place] [address] PCP - General Internal Medicine 11/23/20 documented as of this encounter
--- OUTSIDE RECORDS SUMMARY | 2024-04-20 08:29 | External Medical Summary ---
Author Name Unknown Address Unknown Organization [id number]:[facility] [place] [address] Laboratory Report Ordering Provider Test Date Status ALBERTO HINOJOSA 04/09/2024 13:24:02 Final Observation Date Value Abnormality Reference (Units ) Status WBC, Total 04/09/2024 13:24:02 11.22 Above high normal 4 .00-10.80 (K/uL) Final RBC 04/09/2024 13:24:02 4.37 3.85-5.15 (M/uL) Final Hemoglobin 04/09/2024 13:24:02 13.6 12.0-15.3 (g/dL) Final HCT 04/09/2024 13:24:02 40.3 36.0-45.2 (%) Final MCV 04/09/2024 13:24:02 92.2 81.5-97.5 (fL) Final MCH 04/09/2024 13:24:02 31.1 27.0-34.0 (pg) Final MCHC 04/09/2024 13:24:02 33.7 32.0-36.0 (g/dL) Final RDW 04/09/2024 13:24:02 14.1 11.5-15.5 (%) Final Platelets 04/09/2024 13:24:02 378 140-400 (K /uL) Final MPV 04/09/2024 13:24:02 8.7 6.6-11.1 ( fL) Final Performing Location [facility] [place] [address]
--- OUTSIDE RECORDS SUMMARY | 2024-04-20 08:29 | External Medical Summary ---
Author Name Unknown Address Unknown Organization [id number]:[facility] [place] - [address] [place] [address] Laboratory Report Ordering Provider Test Date Status ALBERTO HINOJOSA 04/09/2024 13:24:02 Final Observation Date Value Abnormality Reference (Units ) Status Vitamin B12 04/09/2024 13:24:02 >2000 Above high normal 232-1245 (pg/mL) Final Performing Location [facility] - [address] [place] [address]
--- OUTSIDE RECORDS SUMMARY | 2024-04-20 08:29 | External Medical Summary ---
Author Name Unknown Address Unknown Organization [id number]:[facility] [place] - [address] [place] [address] Laboratory Report Ordering Provider Test Date Status ALBERTO HINOJOSA 04/09/2024 13:24:02 Final Observation Date Value Abnormality Reference (Units ) Status Ferritin 04/09/2024 13:24:02 180 Above high normal 13 -150 (ng/mL) Final Postmenopausal women have hi gher ferritin levels than pre-menopausal women. The above reference interval is based on pre-menopausal women. Performing Location [facility] [place] - [address] [place] [address]
--- OUTSIDE RECORDS SUMMARY | 2024-04-20 08:29 | External Medical Summary ---
Author Name Unknown Address Unknown Organization [id number]:[facility] - [address] [place] [address] Laboratory Report Ordering Provider Test Date Status ALBERTO HINOJOSA 04/09/2024 13:24:02 Final Observation Date Value Abnormality Reference (Units ) Status T4, Free 04/09/2024 13:24:02 0.6 Below low normal 0.9 -1.7 (ng/dL) Final Performing Location [facility] - [address] [place] [address]
--- OUTSIDE RECORDS SUMMARY | 2024-04-20 08:29 | External Medical Summary ---
Author Name Unknown Address Unknown Organization [id number]:[facility] [place] - [address] [facility] [address] [facility] [address] Laboratory Report Ordering Provider Test Date Status ALBERTO HINOJOSA 04/09/2024 13:24:02 Final Observation Date Value Abnormality Reference (Units ) Status TSH 04/09/2024 13:24:02 23.50 Above high normal 0. 27-4.20 (uIU/mL) Final Performing Location [facility] [place] - [address] [place] [address]
--- OUTSIDE RECORDS SUMMARY | 2024-04-20 08:29 | External Medical Summary ---
Author Name Unknown Address Unknown Organization [id number]:[facility] [address] [place] [address] Laboratory Report Ordering Provider Test Date Status ALBERTO HINOJOSA 04/09/2024 13:24:02 Final Observation Date Value Abnormality Reference (Units ) Status BUN 04/09/2024 13:24:02 11 6-20 (mg/dL) Final Creatinine 04/09/2024 13:24:02 1.1 Above high normal 0.5-1.0 (mg/dL) Final Glomerular filtration rate/1.73 sq M.predicted [Volume Rate/Area] in Serum, Plasma or Blood by Creatinine-based formula (CKD-EPI) 04/09/2024 13:24:02 60 >=60 (mL/min) Final eGFR is calculated based on the CKD-EPI 2020 equation. Sodium 04/09/2024 13:24:02 139 135-146 (m mol/L) Final Potassium 04/09/2024 13:24:02 4.0 3.5-5.1 (m mol/L) Final Cl 04/09/2024 13:24:02 104 98-107 (mm ol/L) Final CO2 04/09/2024 13:24:02 22 22-32 (mmo l/L) Final Anion gap 04/09/2024 13:24:02 13 7-15 (mmol /L) Final Glucose 04/09/2024 13:24:02 101 70-120 (mg /dL) Final Albumin 04/09/2024 13:24:02 4.5 3.8-5.0 (g /dL) Final AST (Aspartate aminotransferase) 04/09/2024 13:24:02 16 10-35 (U/L) Final Alk Phos 04/09/2024 13:24:02 57 35-130 (U/ L) Final Bilirubin, Total 04/09/2024 13:24:02 0.7 <=1 .2 (mg/dL) Final Calcium 04/09/2024 13:24:02 9.3 8.4-10.2 ( mg/dL) Final Protein 04/09/2024 13:24:02 7.2 6.0-8.3 (g /dL) Final ALT (Alanine aminotransferase) 04/09/2024 13:24:02 17 10-35 (U/L) Final Performing Location [facility] [address] [place] [address]
--- OUTSIDE RECORDS SUMMARY | 2024-04-20 08:29 | External Medical Summary | Summary of Care ---
Author Name Unknown Organization [facility] Address [address] [place] [address] Phone [phone] Care Team Providers Care Wood Boring Machine Operator Name Role Phone Josie Ha MD Primary Care Provider Reason for Referral * Evaluate & Treat - Unlimited Visits (Within 30 days (routine)) - Authorized Specialty Diagnoses / Procedures Referred By Justino lin Referred To Contact Neurology Diagnoses Peripheral polyneuropathy She Sequeira DO [address] [facility] [place] [address] Phone: tel: fax: Referral ID Status Reason Start Date Expiration Date Visits Requested Visits Authorized [id number] Authorized Specialty Services Required 04/08/[phone] Question Answer Referral Priority Within 30 days (routine) Where should this appointment be scheduled? [facility] Is this referral being placed for insurance purposes ONLY No, patient needs appointment [facility] NEUROLOGY REFERRAL QUESTIONS Neuromuscular Comments Peripheral neuropathy of L arm starting at finger tips and working its way up L arm. No TTP carpal tunnel or ulnar tunnel of elbow, got flu shot mid Nov, had Mirena IUD placed around same time, on zeound. Reason for Visit * Reason Comments Acute Encounter Details Date Type Department Care Team (Late st Contact Info) Description 04/08/2024 4:20 PM EST Office Visit [facility] [address] [place] [address] She Sequeira DO [address] [place] [address] Peripheral polyneuropathy* Allergies No known active allergiesdocumented as of this encounter (statuses as of 04/10/2024) Medications cetirizine (ZYRTEC) 10 MG Tablet Take 1 Tab by mouth daily. 30 Tab 11 7 Active diphenhydramine (BENADRYL) 25 MG Tablet Take 2 Tabs by mouth every 6 hours as needed (for worsening itching or rash/hives). 30 Tab 7 Active Naproxen 500 MG Oral Tablet (NAPROSYN)Indicati ons:Intercostal muscle pain Take 1 Tab by mouth 2 times a day as needed for Pain. With food 60 Tab 0 Active Multivitamin Adult Oral Tablet Take by mouth. Active Probiotic Acidophilus BioBeads Oral Capsule Take 1 Capsule by mouth in the morning and 1 Capsule at noon and 1 Capsule in the evening. Take with meals. Active Calcium 1000 + D 1000-20 MG-MCG Oral Tablet (Calcium Carb-Cholecalcifer ol) Take by mouth. Active Zepbound 10 MG/0.5ML Subcutaneous Solution Auto-injector Inject 10 mg under the skin once a week. 4 Active predniSONE 10 MG Oral Tablet (Deltasone)Indicat ions:Peripheral polyneuropathy Take 5 tabs for 2 days, 4 tabs for 2 days, 3 tabs for 2 days, 2 tabs for 2 days 1 tab for 2 days 30 Tablet 5 Active documented as of this encounter (statuses as of 04/10/2024) Active Problems Problem Noted Date Diagnosed Date Mixed rhinitis 12/21/2016 Pruritic disorder 12/21/2016 Presence of intrauterine contraceptive device (I UD) 02/29/2016 Tobacco use disorder documented as of this encounter (statuses as of 04/10/2024) Resolved Problems Problem Noted Date Diagnosed Date Resolved Date Acne 04/28/2009 02/19/2024 Tobacco use disorder 09/22/2008 013 NONTOX UNINODULAR GOITER CONTRACEPT PILL SURVEILL documented as of this encounter (statuses as of 04/10/2024) Immunizations Name Administration Dates Next Due COVID-19 mRNA, LNP-s, No Pre serve, 2-Dose Series (Pfizer) 03/05/2021,07/06/2020,06/14/2020 Seasonal Influenza Virus Vac cine, Unspecified Formulation 12/31/2020,01/15/2020 Seasonal Influenza, PF, 6 M & above, IM , (FluLaval or Fluzone) 02/17/2023,01/13/2022,01/15/2020 Seasonal Influenza, Trivalen t, (IIV3), PF, (Fluzone) 02/19/2024 TDAP (age 10 and older)(Boostrix) 06/17/2017 documented as of this encounter Social History Tobacco Use Types Packs/Day Years Used Date Smoking Tobacco: Former Cigarettes 1 5 0 06/15/2017 - 06/15/2022 Smokeless Tobacco: Never Comments:Quit and restarted many times Alcohol Use [...] 02/02/2024 Does the household have a re lar source of income? (Household - for ages [...] Sign Reading Time Taken Comments Blood Pressure 122/72 04/08/2024 4:20 PM EST Pulse 71 04/08/2024 4:20 PM EST Temperature 36.7 C (98 F) 04/08/2024 4:20 PM EST Respiratory Rate - - Oxygen Saturation 99% 04/08/2024 4:20 PM EST Inhaled Oxygen Concentration - - Weight 66.7 kg (147 lb 0.6 oz) 04/08/2024 4:20 P M EST Height - - Body Mass Index 26.06 02/19/2024 1:38 PM EST documented in this encounter Progress Notes * She Sequeira, - 04/08/2024 4:24 PM EST Subjective: Carmen Manzanares is a 48 year old female. Chief Complaint Patient presents with Acute HPI: Pt is here today for numbness/ tingling/ pins and needles sensation in her left arm and more recently her left foot. it started in the fingers they are numb and now the pain has went up the arm pt stated it started about two weeks ago pt is not taking anything for the pain- is more heavy/ uncomfortable feeling. No trauma, falls, MVA. Has never had this before or anything like it. No other focal neural defects, KEBEDE, change in vision or visual hand, other numbness, weakness. No loss of control of bowel or bladder, no confusion, mental fog or change in mental status. Peripheral neuropathy of L arm starting at finger tips and working its way up L arm. No TTP carpal tunnel or ulnar tunnel of elbow, got flu shot mid Feb, had Mirena IUD placed around same time, on zepbound. Normal diet, takes MVI No travel, chemical exposure, recent illness, no chemo in her lifetime Weight stable, no F/C, night sweats, fatigue, nausea, vomiting. No family history of anything like this. PHM: Patient Active Problem List Diagnosis Presence of intrauterine contraceptive device (IUD) Tobacco use disorder Mixed rhinitis Pruritic disorder Current Outpatient Medications Medication Sig Dispense Refill predniSONE 10 MG Oral Tablet (Deltasone) Take 5 tabs for 2 days, 4 tabs for 2 days, 3 tabs for 2 days, 2 tabs for 2 days 1 tab for 2 days 30 Tablet 0 Zepbound 10 MG/0.5ML Subcutaneous Solution Auto-injector Inject 10 mg under the skin once a week. Calcium 1000 + D 1000-20 MG-MCG Oral Tablet (Calcium Carb-Cholecalciferol) Take by mouth. Multivitamin Adult Oral Tablet Take by mouth. Probiotic Acidophilus BioBeads Oral Capsule Take 1 Capsule by mouth in the morning and 1 Capsule atnoon and 1 Capsule in the evening. Take with meals. Naproxen 500 MG Oral Tablet (NAPROSYN) Take 1 Tab by mouth 2 times a day as needed for Pain. With food 60 Tab 0 cetirizine (ZYRTEC) 10 MG Tablet Take 1 Tab by mouth daily. 30 Tab 11 diphenhydramine (BENADRYL) 25 MG Tablet Take 2 Tabs by mouth every 6 hours as needed (for worseningitching or rash/hives). 30 Tab No current facility-administered medications for this visit. Review of patient's allergies indicates: No Known Allergies Objective: BP 122/72 (BP Site: Right Arm, BP Position: Sitting) | Pulse 71 | Temp 98 F (36.7 C) | Wt 147 lb 0.6 oz (66.7 kg) | SpO2 99% | BMI 26.06 kg/m | BSA 1.72 m Physical Exam: General: alert, healthy, and no distress Head: Normocephalic, No masses, lesions, tenderness or abnormalities Pulses: carotid=2/4 w/o bruits Extremities: less than 2 second capillary refill, no joint deformities, effusion, or inflammation Neuro Exam: alert & oriented x 3 with fluent speech, no focal motor/sensory deficits appreciated, gait normal, ASSESSMENT/PLAN: 2 week h/o peripheral neuropathy from L elbow to fingertips, starting at all fingertips, moving up, arm feels heavy and weak, but no decreased strength noted. Feels like pins and needles, Also in L foot on sole only Peripheral polyneuropathy (Primary) - VITAMIN B12; Future; Expected date: 04/08/2024 - TSH WITH FREE T4 IF INDICATED; Future; Expected date: 04/08/2024 - FERRITIN; Future; Expected date: 04/08/2024 - ADULT NEUROLOGY REFERRAL OP - XR C SPINE 4-5 VIEWS - predniSONE 10 MG Oral Tablet (Deltasone); Take 5 tabs for 2 days, 4 tabs for 2 days, 3 tabs for 2days, 2 tabs for 2 days 1 tab for 2 days - COMPREHENSIVE METABOLIC PANEL; Future; Expected date: 04/08/2024 - CBC WITH WBC DIFFERENTIAL; Future; Expected date: 04/08/2024 Follow-up: Return if symptoms worsen or fail to improve. | Check-out note: xray Ask a doc sent to neuro DDX transverse myelitis- try prednisone. reviewed appropriate use, benefits, risks, side effects and alternatives. ER with worsening or severe symptoms. She Sequeira DO 40 min spent with patient, reviewing history, performing physical exam, reviewing labs, studies, specialist OVNs, and reports, educating and coordinating care, discussing treatment Addendum 04/10/2024: Neurologist recommends EMG, MRI C spine for hemianesthesia, and neurology consult. Ordered, will schedule documented in this encounter Nursing Notes * Kim Joseph CCMA - 04/08/2024 4:18 PM EST Pt is here today for her left arm it started in the fingers they are numb and now the pain has wentup the arm pt stated it started about two weeks ago pt is not taking anything for the pain. documented in this encounter Plan of Treatment Upcoming Encounters Date Type Department Care Team (Late st Contact Info) Description 04/25/2024 7:30 AM EST Imaging Radiology [address] [facility] [place] [address] 05/10/2024 8:00 AM EST Office Visit Neurology [facility] [address] [place] [address] Prakash Zambrano, [address] [place] [address] 01/23/2025 9:20 AM EDT Office Visit [facility]ology[facility] [address] [facility] [place] [phone] Colleen [place], PA-Amanda [address] [place] [address] [place] [phone] 02/20/2025 10:20 AM EST Office Visit Family Practice [facility] [address] [facility] [place] [address] Josie Ha MD [address] [facility] [place] [address] Scheduled Procedures Name Priority Associated Diagnoses Date/Ti me COLONOSCOPY FLEXIBLE PROXIMA L DIAGNOSTIC Recall Screening for colon cancer Scheduled Referrals Name Type Priority Associated Diagnoses Orde r Schedule ADULT NEUROLOGY REFERRAL OP Referral Within 30 days (routine) Peripheral polyneuropathy Ordered: 04/08/2024 Health Maintenance Due Date Last Done Comments [...] 03/10/2025 03/10/2022, 02/01, 11/09/2016, Additional history exists Cervical Cancer Screening 03/10/2027 HPV/Co-Test 03/10/2027 03/10/2022 Diabetes Screening 04/09/2027 04/09/2024, 0 11/22/2022, 03/09/2020, Additional history exists DTap/Tdap Vaccines (2 - Td or Tdap) [...] 5 Years) and At-Risk Patients (6 to 18 Years and 19+ Years) Aged Out No longer eligib le based on patient's age to complete this topic documented as of this encounter Medical Devices Not on filedocumented as of this encounter Procedures Procedure Name Priority Date/Time Associated Diagnosis Comments XR C SPINE 4-5 VIEWS Routine 04/09/2024 1:26 PM EST Peripheral polyneuropathy documented in this encounter Results * XR C SPINE 4-5 VIEWS (04/09/2024 1:26 PM EST) Anatomical Region Laterality Modality Vertebra, Spine, Cspine Computed Radiography 04/09/2024 8:48 PM EST Narrative 04/09/2024 8:46 PM EST EXAM: XR C SPINE 4-5 VIEWS HISTORY: numbness L hand progressively up to elbow COMPARISON:- FINDINGS / IMPRESSION: Multilevel degenerative changes of the spine is identified. There ismild disc space narrowing with osteophytes . No acute fracture or subluxation. Procedure Note Theodore Gonzalez MD - 04/09/2024 EXAM: XR C SPINE 4-5 VIEWS HISTORY: numbness L hand progressively up to elbow COMPARISON:- FINDINGS / IMPRESSION: Multilevel degenerative changes of the spine is identified. There ismilddisc space narrowing with osteophytes . No acute fracture orsubluxation. She Sequeira DO RADIOLOGY (RAD GENERAL) Final Result * (ABNORMAL) COMPREHENSIVE METABOLIC PANEL (04/09/2024 1:24 PM EST) BUN 11 6 - 20 mg/dL 04/09/2024 2:26 PM EST [facility] [place] CREATININE 1.1(H) 0.5 - 1.0 mg/dL 04/09/2024 2:26 PM EST [facility] [place] 56 EGFR 60 >=60 mL/min 04/09/2024 2:26 PM EST [facility] 56- Comment:eGFR is calculated b ased on the CKD-EPI 2020 equation. SODIUM 139 135 - 146 mmol/L 04/09/2024 2:26 PM EST [facility] [place] 56-02 POTASSIUM 4.0 3.5 - 5.1 mmol/L 04/09/2024 2:26 PM EST [facility] [place] 56- CHLORIDE 104 98 - 107 mmol/L 04/09/2024 2:26 PM EST [facility] [place] 56- CO2 22 22 - 32 mmol/L 04/09/2024 2:26 PM EST [facility] [place] 56-02 ANION GAP 13 7 - 15 mmol/L 04/09/2024 2:26 PM EST [facility] [place] 56- GLUCOSE 101 70 - 120 mg/dL 04/09/2024 2:26 PM [facility] [place] 56- Albumin 4.5 3.8 - 5.0 g/dL 04/09/2024 2:26 PM EST [facility] [place] 56-02 AST 16 10 - 35 U/L 04/09/2024 2:26 PM EST [facility] [place] 56-02 Alkaline Phosphatase 57 35 - 130 U/L 04/09/2024 2:26 PM EST [facility] [place] 56-02 Bilirubin, Total 0.7 <=1.2 mg/dL 04/09/2024 2:26 PM EST [facility] [place] 56-02 CALCIUM 9.3 8.4 - 10.2 mg/dL 04/09/2024 2:26 PM EST [facility] [place] 56-02 Protein 7.2 6.0 - 8.3 g/dL 04/09/2024 2:26 PM EST [facility] [place] 56-02 ALT 17 10 - 35 U/L 04/09/2024 2:26 PM EST [facility] [place] 56-02 Blood Venous blood specimen / Unknown Venipuncture / Unknown 04/09/2024 1:24 PM EST 04/09/2024 1:24 PM EST [place] LAB BLOOD ORDERABLES Fi nal Result [facility] 56-[address] [place] [address] * (ABNORMAL) FERRITIN (04/09/2024 1:24 PM EST) [facility] Ferritin 180(H) 13 - 150 ng/mL 04/10/2024 5:00 AM EST [facility] Comment:Postmenopausal women have higher ferritin levels than pre-menopausal women. The above reference interval is based on pre-menopausal women. Blood Venous blood specimen / Unknown Venipuncture / Unknown 04/09/2024 1:24 PM EST 04/09/2024 1:24 PM EST DFine DO LAB BLOOD ORDERABLES Fi nal Result [facility] [address] [place] [address] * (ABNORMAL) TSH WITH FREE T4 IF INDICATED (04/09/2024 1:24 PM EST) TSH 23.50(H) 0.27 - 4.20 uIU/mL 04/10/2024 5:00 AM EST [facility] Blood Venous blood specimen / Unknown Venipuncture / Unknown 04/09/2024 1:24 PM EST 04/09/2024 1:24 PM EST [facility] Eugenia Zafariter DO LAB BLOOD ORDERABLES Fi nal Result Performing Organization Address City/[facility] Co de Phone Number [facility] [address] [place] [address] * (ABNORMAL) VITAMIN B12 (04/09/2024 1:24 PM EST) Pathologist [facility] Vitamin B12 >2,000(H) 232 - 1,245 pg/mL 04/10/2024 5:00 AM EST [facility] Blood Venous blood specimen / Unknown Venipuncture / Unknown 04/09/2024 1:24 PM EST 04/09/2024 1:24 PM EST [facility] Eugenia Keiter DO LAB BLOOD ORDERABLES Fi nal Result Performing Organization Address City/[facility] [[email or web address]] de Phone Number LABORATORY [address] [address] documented in this encounter Visit Diagnoses Diagnosis Peripheral polyneuropathy- Primary Unspecified hereditary and idiopathic peripheral neuropathy documented in this encounter Care Teams Wood Boring Machine Operator Relationship Specialty Start Date End Date Josie Ha MD [address] [place] [address] [place] [address] PCP - General Internal Medicine 11/23/20 documented as of this encounter"
--- OUTSIDE RECORDS SUMMARY | 2024-04-20 08:29 | External Medical Summary | Summary of Care ---
Author Name Unknown Organization [facility] Address [address] [facility] [place] [address] Phone [phone] Care Team Providers Care Retail Buyer Name Role Phone Josie Ha MD Primary Care Provider Reason for Visit * Reason Comments IUD IUD removal and inse rtion Encounter Details Date Type Department Care Team (Late st Contact Info) Description 02/16/2024 3:00 PM EST Office Visit Gynecology/Obstetric s [facility] [address] [place] [address] Violet Shin CRNP [address] [place] [place] [address] Encounter for IUD removal and reinsertion*; Screening examination for venereal disease Allergies No known active allergiesdocumented as of this encounter (statuses as of 02/16/2024) Medications cetirizine (ZYRTEC) 10 MG Tablet Take 1 Tab by mouth daily. 30 Tab 11 12/22/19 17 Active diphenhydramine (BENADRYL) 25 MG Tablet Take 2 Tabs by mouth every 6 hours as needed (for worsening itching or rash/hives). 30 Tab 12/22/19 17 Active Naproxen 500 MG Oral Tablet (NAPROSYN)Indic ations:Intercos reed muscle pain Take 1 Tab by mouth 2 times a day as needed for Pain. With food 60 Tab 01/17/20 Active Multivitamin Adult Oral Tablet Take by mouth. Activ e Probiotic Acidophilus BioBeads Oral Capsule Take 1 Capsule by mouth in the morning and 1 Capsule at noon and 1 Capsule in the evening. Take with meals. Active Calcium 1000 + D 1000-20 MG-MCG Oral Tablet (Calcium Carb-Cholecalci ferol) Take by mouth. Activ e Tavaborole 5 % External SolutionIndicat ions:Onychomyco sis Apply to affected toenail daily 10 mL 1 07/19/19 Active Additional Information Patient not taking.Reported on 02/16/2024 Econazole Nitrate 1 % External Cream (Spectazole)Ind ications:H/O tinea,Onychomyc osis Apply 2x weekly to feet and nails mcfp for prevention of reflaring of fungus. 85 g 2 07/25/19 Active Additional Information Patient not taking.Reported on 02/16/2024 predniSONE 10 MG Oral Tablet (Deltasone)Sury cations:Irritan t contact dermatitis due to plants, except food Take 5 tabs for 2 days, 4 tabs for 2 days, 3 tabs for 2 days, 2 tabs for 2 days 1 tab for 2 days 30 Tablet 10/25/19 Active Additional Information Patient not taking.Reported on 02/16/2024 Levonorgestrel 20 MCG/24HR Intrauterine Intrauterine DeviceIndicatio ns:02/09/16 Insert 1 Each into uterus once. 024 Discontinued Hospital, Clinic, or Other Facility Administered Medication Ordered Dose Route Frequency Start Date End Date Status levoNORGESTREL(Mirena) 20 mcg/24 hr IUDIndications:Encounter for IUD removal and reinsertion 1 Each IU ONCE 02/16/2024 02/16/2024 Ended documented as of this encounter (statuses as of 02/16/2024) Active Problems Problem Noted Date Diagnosed Date Mixed rhinitis 12/21/2016 Pruritic disorder 12/21/2016 Presence of intrauterine contraceptive device (I UD) 02/29/2016 Acne 04/28/2009 Tobacco use disorder documented as of this encounter (statuses as of 02/16/2024) Resolved Problems Problem Noted Date Diagnosed Date Resolved Date Tobacco use disorder 09/22/2008 09/06/2 013 NONTOX UNINODULAR GOITER CONTRACEPT PILL SURVEILL documented as of this encounter (statuses as of 02/16/2024) Immunizations Name Administration Dates Next Due COVID-19 mRNA, LNP-s, No Pre serve, 2-Dose Series (Pfizer) 03/05/2021,07/06/2020,06/14/2020 Seasonal Influenza Virus Vac cine, Unspecified Formulation 12/31/2020,01/15/2020 Seasonal Influenza, PF, 6 M & above, IM , (FluLaval or Fluzone) 02/17/2023,01/13/2022,01/15/2020 TDAP (age 10 and older)(Boostrix) 06/17/2017 documented [...] No 02/02/2024 Does the household have a [facility] source of income? (Household - for ages [...] Sign Reading Time Taken Comments Blood Pressure 120/82 02/16/2024 2:55 PM EST Pulse - - Temperature - - Respiratory Rate - - Oxygen Saturation - - Inhaled Oxygen Concentration - - Weight 67.1 kg (148 lb) 02/16/2024 2:55 PM EST Height - - Body Mass Index 26.23 02/17/2023 9:03 AM EST documented in this encounter Progress Notes * Violet Shin CRNP - 02/16/2024 3:22 PM EST Carmen Manzanares [phone] Carmen Manzanares 48 year old is here for Mirena IUD removal and reinsertion. Again, discussed risks and benefits of IUD insertion. Patient is aware risks of insertion include perforation of uterus with insertion which would require surgical removal, embedment of IUD into uterus, increased risk of ectopic should occur, increased risk of PID with more thanone partner, possibility of sepsis which would require removal. Explosive Ordnance Disposal Technician Documentation Provider requested informatica mdm architect. Name of informatica mdm architect: Viviana Florez "time out" was initiated by DOUGLAS Haji prior to procedure. The patient was identified byname and date of . The correct procedure, and correct site identified. Correct positioning (asapplicable). There is availability of necessary equipment. Patient states she is not allergic to lat ex. IUD strings visualized in cervical os. Strings grasped with ring forceps and removed with gentle traction. IUD intact at removal. After informed consent was obtained and it was confirmed the patient was not , a speculum was placed in the vagina. The cervix was prepped using Betadine. The anterior lip of the cervix was grasped using a single tooth tenaculum. A uterine sound was then introduced easily and the uterus sounded to 8.5cm and was noted to be anteverted. Mirena arms loaded under sterile technique and IUD advanced to 6cm, arms released and IUD placed touterine fundus, no resistance met with insertion of IUD. IUD strings shortened to approximately 1.5inches. Small amount of bleeding noted. The speculum was then removed. The patient tolerated the procedure well. IMP: Insertion of Mirena IUD Plan: patient taught how to check strings, return in 8 weeks. To call with any pain, bleeding or fever. DOUGLAS Haji 02/16/2024 3:22 PM documented in this encounter Nursing Notes * Viviana Pastor CMA - 02/16/2024 2:55 PM EST Patient present today for mirena IUD removal and insertion. No unprotected intercourse in the last 14 days. documented in this encounter Plan of Treatment Upcoming Encounters Date Type Department Care Team (Late st Contact Info) Description 02/19/2024 1:40 PM EST Office Visit Family [facility] [address] [place] [address] Josie Ha MD [address] [place] [address] 01/23/2025 9:20 AM EDT Office Visit Dermatology, [place] [address] [facility] [place] [address] Colleen Barrera PA-C [address] [place] [address] [place] [address] Pending Results Name Type Priority Associated Diagnoses Date /Time CHLAMYDIA TRACHOMATIS AND NEISSERIA GONORRHOEAE, AMPLIFIED PROBE Lab Routine Screening examination for venereal disease 02/16/2024 3:23 PM EST Scheduled Orders Name Type Priority Associated Diagnoses Orde r Schedule CHLAMYDIA TRACHOMATIS AND NEISSERIA GONORRHOEAE, AMPLIFIED PROBE Lab Routine Screening examination for venereal disease Expected: 02/16/2024, Expires: 02/15/2025 Scheduled Procedures Name Priority Associated Diagnoses Date/Ti me COLONOSCOPY FLEXIBLE PROXIMA L DIAGNOSTIC Recall Screening for colon cancer Health Maintenance Due Date Last Done Comments Hepatitis C Screening 1994 Hepatitis B Vaccine (1 of 3 - 19+ 3-dose series) 06/23/1995 Cologuard 2021 Fecal Occult Blood Test 2021 Sigmoidoscopy 2021 COVID-19 Vaccine ( season) 2023 03/05/2021, 07/06/2020, 06/14/2020 Influenza Vaccine (FLU shot) (#1) 2023 02/17/2023, 01/13/2022, 12/31/2020, Additional history exists Depression Screening 02/18/2024 02/17/2023 Mammogram 11/30/2024 12/01/2023, 11/02, 11/29/2021, Additional history exists Lipid Panel 03/09/2025 03/09/2020 Pap Smear 03/10/2025 03/10/2022, 02/01, 11/09/2016, Additional history exists Diabetes Screening 11/22/2025 11/22/2022, 1 05/10/2019, 10/07/2003 Cervical Cancer Screening 03/10/2027 HPV/Co-Test 03/10/2027 03/10/2022 DTap/Tdap Vaccines (2 - Td or Tdap) 06/18/2027 06/17/2017 Colonoscopy 07/07/2032 07/07/2022, 07/07/2022 Colorectal Cancer Screening 07/07/2032 HPV (Gardasil) Vaccine Aged Out No lo [...] Procedure Name Priority Date/Time Associated Diagnosis Comments URINE SCREEN, POINT OF CARE (ENTER/EDIT) Routine 02/16/2024 Encounter for IUD removal and reinsertion documented in this encounter Results * URINE SCREEN, POINT OF CARE (ENTER/EDIT) (02/16/2024) hCG Beta, Urine Negative Negative Procedural Control Valid? Yes Lot Number [id number] Expiration Date Urine 02/16/2024 [facility] POINT OF CARE TEST ENTER/ EDIT ORDERABLES Final Result documented in this encounter Visit Diagnoses Diagnosis Encounter for IUD removal and reinsertion- Primary Encounter for removal and reinsertion of intrauterine contraceptive device Screening examination for venereal disease documented in this encounter Administered Medications Inactive Administered Medications - up to 3 most recent administrations Medication Order MAR Action Action Date Dose Rate Site levoNORGESTREL(Mirena) 20 mcg/24 hr IUD 1 Each, Intrauterine, ONCE, On Mon02/16/24 at 1600, For 1 doseIndications:Encounter for IUD removal and reinsertion Given 02/16/2024 3:23 PM EST 1 Each documented in this encounter Care Teams Retail Buyer Relationship Specialty Start Date End Date Josie Ha MD [address] [place] [address] PCP - General Internal Medicine 11/23/20 documented as of this encounter
--- OUTSIDE RECORDS SUMMARY | 2024-04-20 08:29 | External Medical Summary | Summary of Care ---
Author Name Unknown Organization [facility] Address [address] [place] [address] Phone [phone] Care Team Providers Care Certified Nurses Aide Name Role Phone Josie Ha MD Primary Care Provider Reason for Visit * Reason Comments EMG * Evaluate & Treat - Unlimited Visits (Within 30 days (routine)) - Authorized Specialty Diagnoses / Procedures Referred By Justino lin Referred To Contact Neurology Diagnoses Peripheral polyneuropathy She Sequeira, DO [address] [place] [address] Phone: tel: fax: Referral ID Status Reason Start Date Expiration Date Visits Requested Visits Authorized [id number] Authorized Specialty Services Required 04/08/[phone] Encounter Details Date Type Department Care Team (Late st Contact Info) Description 04/10/2024 10:00 AM EST NeuroDiagnostic Study [facility] [address] [place] [address] Prakash Zambrano DO [address] [place] [address] Arrived Allergies No known active allergiesdocumented as of [...] mRNA, LNP-s, No Pre serve, 2-Dose Series ([place]) 03/05/2021,07/06/2020,06/14/2020 Seasonal Influenza Virus Vac cine, Unspecified [...] on file documented as of this encounter Progress Notes * Prakash Zambrano DO - 04/10/2024 10:36 AM EST [facility] Neurophysiology Laboratory Electromyography Report Name: Carmen Manzanares Date of : 1975 (48 year old) Sex: female Tech: Jeferson Apple Referring Physician: She Sequeira DO Examining Physician: Prakash Zambrano DO Examination Date: 04/10/2024 Ht Readings from Last 1 Encounters: 02/19/24 1.6 m (5' 2.99") Wt Readings from Last 1 Encounters: 04/08/24 66.7 kg (147 lb 0.6 oz) Impression: Normal study. There is no electrodiagnostic evidence of a neuropathy, polyneuropathy, or radiculopathy in the left upper or lower extremity. History and Physical examination: A 48-year-old female with numbness in her left arm and left leg. Sensation is intact to light touch. EMG/NCS performed for evaluation of neuropathy versus radiculopathy. Nerve Conduction Studies Examination Findings: Nerve conduction studies were performed in the left upper and lower extremity. The median, ulnar, radial, and sural sensory nerve study showed normal peak latencies, normal amplitudes, and normal conduction velocities. The median, ulnar, peroneal, and tibial motor nerve study showed normal distal latencies, normal amplitudes, and normal conduction velocity. Please see the attached document for raw data or the scanned document in EPIC. Reference values are from the [facility] normative data guidelines that are attached at the end ofthis document. Electromyography Examination Findings: Needle examination was performed with a disposable concentric needle electrode in selected muscles of the left upper and lower extremities, as recorded in the tables. No abnormal spontaenous activitywas seen. The motor unit action potentials in the muscles tested demonstrated normal size, duration, and recruitment. Please see the attached document for raw data or the scanned document in EPIC. The study was done with a concentric needle examination. Prakash Zambrano DO documented in this encounter Plan of Treatment Upcoming Encounters Date Type Department Care Team (Late st Contact Info) Description 05/10/2024 8:00 AM EST Office Visit Neurology [facility] [address] [place] [address] Prakash Zambrano DO [address] [place] [address] 01/23/2025 9:20 AM EDT Office Visit [facility] [address] [place] [phone] Colleen Barrera PA-C [address] [place] [address] [place] [address] 02/20/2025 10:20 AM EST Office Visit Family Practice [facility] [address] [place] [address] Josie Ha MD [address] [place] [address] Scheduled Procedures Name Priority Associated Diagnoses Date/Ti [...] as of this encounter Visit Diagnoses Diagnosis Numbness and tingling in left arm [R20.0, R20.2]- Primary Disturbance of skin sensation documented in this encounter Care Teams Certified Nurses Aide Relationship Specialty Start Date End Date Josie Ha MD [address] [place] [address] PCP - General Internal Medicine 11/23/20 documented as of this encounter
--- OUTSIDE RECORDS SUMMARY | 2024-04-20 08:29 | External Medical Summary | Summary of Care ---
Author Name Unknown Organization [facility] Address [address] [place] [address] Phone [phone] Care Team Providers Care Cyberathlete Name Role Phone Josie Ha MD Primary Care Provider Encounter Details Date Type Department Care Team (Late st Contact Info) Description 04/10/2024 Telephone Family Practice [facility] [address] [place] [address] She Sequeira, DO [address] [facility] [place] [address] Allergies No known active allergiesdocumented as of [...] for 2 days 30 Tablet 5 Active Levothyroxine Sodium 75 MCG Oral Tablet (Levoxyl) Take 1 Tablet by mouth in the morning. (at least 30 min prior to breakfast or other meds). 30 Tablet 11 5 Active documented as of this encounter [...] mRNA, LNP-s, No Pre serve, 2-Dose Series (2Catalyze) 03/05/2021,07/06/2020,06/14/2020 Seasonal Influenza Virus Vac cine, Unspecified [...] on file documented as of this encounter Plan of Treatment Upcoming Encounters Date Type Department Care Team (Late st Contact Info) Description 04/25/2024 7:30 AM EST Imaging Radiology [address] [facility] [place] [address] 05/10/2024 8:00 AM EST Office Visit Neurology [facility] [address] [place] [address] Prakash Zambrano, DO [address] [place] [address] 01/23/2025 9:20 AM EDT Office [facility] [place] [facility] [address] [facility] [place] [phone] Colleen Barrera PA-C [address] [place] [address] [place] [address] 02/20/2025 10:20 AM EST Office Visit Family Practice [facility] [address] [place] [address] Josie Ha MD [address] [facility] [place] [address] Scheduled Orders Name Type Priority Associated Diagnoses Orde r Schedule TSH Lab Routine 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 Expected: 05/11/2024 (Approximate), Expires: 04/10/2025 T3, FREE Lab Routine 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 Expected: 05/11/2024 (Approximate), Expires: 04/10/2025 T4, FREE Lab Routine 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
--- OUTSIDE RECORDS SUMMARY | 2024-04-20 08:29 | External Medical Summary ---
Author Name Unknown Address Unknown Organization K01:[facility] [place] [facility] [address] [place] [address] Laboratory Report Ordering Provider Test Date Status SIMONE VENEGASMAGED 02/16/2024 15:23:26 Final Observation Date Value Abnormality Reference (Units ) Status Chlamydia trachomatis rRNA [Presence] in Specimen by LORENZO with probe detection 02/16/2024 15:23:26 Negative Negative Final No Chlamydia trachomatis det ected by slubber hand-mediated nucleic acid amplification. Neisseria gonorrhoeae rRNA [ Presence] in Specimen by LORENZO with probe detection 02/16/2024 15:23:26 Negative Negative Final No Neisseria gonorrhoeae det ected by slubber hand-mediated nucleic acid amplification. Performing Location [facility] [place] [address] [place] [address]
--- OUTSIDE RECORDS SUMMARY | 2024-04-20 08:29 | External Medical Summary | Summary of Care ---
Author Name Unknown Organization [facility] Address [address] [place] [facility] [place] [address] Phone [phone] Care Team Providers Care Filter Changer Name Role Phone Josie Ha MD Primary Care Provider Reason for Visit * Reason Comments Outpatient Testing Encounter Details Date Type Department Care Team (Late st Contact Info) Description 04/09/2024 1:20 PM EST Laboratory Laboratory [address] [place] [address] [place] [phone] [facility] Sc[facility] [address] [place] [address] Peripheral polyneuropathy Allergies No known active allergiesdocumented as of this encounter (statuses as of 04/09/2024) Medications cetirizine (ZYRTEC) 10 MG Tablet Take [...] mg under the skin once a week. 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 Pruritic disorder 12/21/2016 Presence of intrauterine contraceptive device (I UD) 02/29/2016 Tobacco use disorder documented as of this encounter (statuses as of 04/09/2024) Resolved Problems Problem Noted Date Diagnosed Date Resolved Date Acne 04/28/2009 02/19/2024 Tobacco use disorder 09/22/2008 013 NONTOX UNINODULAR GOITER CONTRACEPT PILL SURVEILL documented as of this encounter (statuses as of 04/09/2024) Immunizations Name Administration Dates Next Due COVID-19 mRNA, LNP-s, No Pre serve, 2-Dose Series ([employer]) 03/05/2021,07/06/2020,06/14/2020 Seasonal Influenza Virus Vac cine, Unspecified [...] 04/10/2024 10:00 AM EST NeuroDiagnostic Study Neurophysiology [facility] [address] [place] [address] Prakash Zambrano, DO [address] [place] [address] 05/10/2024 8:00 AM EST Office Visit Neurology [facility] [address] [place] [address] Prakash Zambrano, DO [address] [place] [address] 01/23/2025 9:20 AM EDT [facility] [address] [facility] [place] [phone] Colleen Barrera PA-C [address] [place] [address] [place] [address] 02/20/2025 10:20 AM EST Office Visit Family Practice [facility] [address] [place] [address] Josie Ha MD [address] [facility] [place] [address] Pending Results Name Type Priority Associated Diagnoses Date /Time VITAMIN B12 Lab Routine Peripheral polyneuropathy 04/09/2024 1:24 PM EST TSH WITH FREE T4 IF INDICATED Lab Routine Peripheral polyneuropathy 04/09/2024 1:24 PM EST FERRITIN Lab Routine Peripheral polyneuropathy 04/09/2024 1:24 PM EST COMPREHENSIVE METABOLIC PANEL Lab Routine Peripheral polyneuropathy 04/09/2024 1:24 PM EST Scheduled Procedures Name Priority Associated Diagnoses Date/Ti [...] Procedure Name Priority Date/Time Associated Diagnosis Comments DIFFERENTIAL, AUTOMATED Routine 04/09/2024 1:24 PM EST Peripheral polyneuropathy CBC Routine 04/09/2024 1:24 PM EST Peripheral polyneuropathy CBC Routine 04/09/2024 1:24 PM EST Peripheral polyneuropathy documented in this encounter Results * (ABNORMAL) DIFFERENTIAL, AUTOMATED (04/09/2024 1:24 PM EST) WBC 11.22(H) 4.00 - 10.80 K/uL 04/09/2024 1:37 PM EST [facility] 56-02 Neutrophils % 59.6 40.0 - 75.0 % 04/09/2024 1:37 PM EST [facility] 56-02 Lymphocytes % 29.7 18.0 - 42.0 % 04/09/2024 1:37 PM EST [facility] 56-02 Monocytes % 8.1 1.0 - 11.0 % 04/09/2024 1:37 PM EST [facility] 56-02 Eosinophils % 2.1 0.0 - 6.0 % 04/09/2024 1:37 PM EST [facility] 56-02 Basophils % 0.5 0.0 - 2.0 % 04/09/2024 1:37 PM EST [facility] 56-02 Absolute Neutrophils 6.68 1.80 - 7.70 K/uL 04/09/2024 1:37 PM EST [facility] 56-02 Absolute Lymphocytes 3.33 1.00 - 4.80 K/ul 04/09/2024 1:37 PM EST [facility] 56-02 Absolute Monocytes 0.91 0.00 - 1.10 K/uL 04/09/2024 1:37 PM EST [facility] 56-02 Absolute Eosinophils 0.24 0.00 - 0.70 K/uL 04/09/2024 1:37 PM EST [facility] 56-02 Absolute Basophils 0.06 0.00 - 0.20 K/uL 04/09/2024 1:37 PM EST [facility] 56-02 Blood Venous blood specimen / Unknown Venipuncture / Unknown 04/09/2024 1:24 PM EST 04/09/2024 1:24 PM EST us She Sequeira DO LAB BLOOD ORDERABLES Fi nal Result [facility] 56- [address] [place] [address] * (ABNORMAL) CBC (04/09/2024 1:24 PM EST) WBC 11.22(H) 4.00 - 10.80 K/uL 04/09/2024 1:37 PM EST [facility] 56 RBC 4.37 3.85 - 5.15 M/uL 04/09/2024 1:37 PM EST [facility] 5602 HGB 13.6 12.0 - 15.3 g/dL 04/09/2024 1:37 PM EST [facility] 56 HCT 40.3 36.0 - 45.2 % 04/09/2024 1:37 PM EST [facility] 56 MCV 92.2 81.5 - 97.5 fL 04/09/2024 1:37 PM EST [address] MCH 31.1 27.0 - 34.0 pg 04/09/2024 1:37 PM EST [address] MCHC 33.7 32.0 - 36.0 g/dL 04/09/2024 1:37 PM EST [facility] 5602 RDW 14.1 11.5 - 15.5 % 04/09/2024 1:37 PM EST [facility] 5602 PLT 378 140 - 400 K/uL 04/09/2024 1:37 PM EST [facility] MPV 8.7 6.6 - 11.1 fL 04/09/2024 1:37 PM [facility] 5602 Blood Venous blood specimen / Unknown Venipuncture / Unknown 04/09/2024 1:24 PM EST 04/09/2024 1:24 PM EST She Sequeira DO LAB BLOOD ORDERABLES Fi nal Result [facility] 56[address] [place] [address] documented in this encounter Visit Diagnoses Diagnosis Peripheral polyneuropathy Unspecified hereditary and idiopathic peripheral neuropathy documented in this encounter Care Teams Filter Changer Relationship Specialty Start Date End Date Josie Ha MD [address] [place] [address] PCP - General Internal Medicine 11/23/20 documented as of this encounter
--- OUTSIDE RECORDS SUMMARY | 2024-04-20 08:29 | External Medical Summary | Summary of Care ---
Author Name Unknown Organization [facility] Address [address] [place] [address] Phone [phone] Care Team Providers Care Brancher Name Role Phone Josie Ha MD Primary Care Provider Reason for Referral * Evaluate & Treat - Unlimited Visits (Within 30 days (routine)) - Authorized Specialty Diagnoses / Procedures Referred By Justino lin Referred To Contact Neurology Diagnoses Peripheral polyneuropathy She Sequeira DO [address] [facility] [place] [address] Phone: tel: fax: Referral ID Status Reason Start Date Expiration Date Visits Requested Visits Authorized [id number] Authorized Specialty Services Required 04/08/[phone] Question Answer Referral Priority Within 30 days (routine) Where should this appointment be scheduled? [facility] Is this referral being placed for insurance purposes ONLY No, patient needs appointment [facility] NEUROLOGY REFERRAL QUESTIONS Neuromuscular Comments Peripheral neuropathy [...] Description 04/08/2024 4:20 PM EST Office Visit [facility] [address] [place] [address] hSe Sequeira DO [address] [place] [address] Peripheral polyneuropathy* Allergies No known active allergiesdocumented [...] Description 04/25/2024 7:30 AM EST Imaging Radiology [address] [facility] [place] [address] 05/10/2024 8:00 AM EST Office Visit Neurology [facility] [address] [place] [address] Prakash Zambrano, [address] [place] [address] 01/23/2025 9:20 AM EDT Office Visit DermatologyKalyani [address] [facility] [place] [phone] Colleen Barrera, PA-Amanda [address] [place] [address] [place] [address] 02/20/2025 10:20 AM EST Office Visit Family Practice [facility] [address] [facility] [place] [address] Josie Ha MD [address] [facility] [place] [address] Scheduled Procedures Name Priority Associated Diagnoses Date/Ti [...] 20 mg/dL 04/09/2024 2:26 PM EST [facility] [place] 56 CREATININE 1.1(H) 0.5 - 1.0 mg/dL 04/09/2024 2:26 PM EST [facility] [place] 56 EGFR 60 >=60 mL/min 04/09/2024 2:26 PM EST [facility] 56- Comment:eGFR is calculated b ased on the CKD-EPI 2020 equation. SODIUM 139 135 - 146 mmol/L 04/09/2024 2:26 PM EST [facility] [place] 56-02 POTASSIUM 4.0 3.5 - 5.1 mmol/L 04/09/2024 2:26 PM EST [facility] [place] 56- CHLORIDE 104 98 - 107 mmol/L 04/09/2024 2:26 PM EST [facility] [place] 56- CO2 22 22 - 32 mmol/L 04/09/2024 2:26 PM EST [facility] [place] 56-02 ANION GAP 13 7 - 15 mmol/L 04/09/2024 2:26 PM EST [facility] [place] 56- GLUCOSE 101 70 - 120 mg/dL 04/09/2024 2:26 PM [facility] [place] 56- Albumin 4.5 3.8 - 5.0 g/dL 04/09/2024 2:26 PM EST [facility] [place] 56-02 AST 16 10 - 35 U/L 04/09/2024 2:26 PM EST [facility] [place] 56-02 Alkaline Phosphatase 57 35 - 130 U/L 04/09/2024 2:26 PM EST [facility] [place] 56-02 Bilirubin, Total 0.7 <=1.2 mg/dL 04/09/2024 2:26 PM EST [facility] [place] 56-02 CALCIUM 9.3 8.4 - 10.2 mg/dL 04/09/2024 2:26 PM EST [facility] [place] 56-02 Protein 7.2 6.0 - 8.3 g/dL 04/09/2024 2:26 PM EST [facility] [place] 56-02 ALT 17 10 - 35 U/L 04/09/2024 2:26 PM EST [facility] [place] 56-02 Blood Venous blood specimen / Unknown Venipuncture / Unknown 04/09/2024 1:24 PM EST 04/09/2024 1:24 PM EST [employer] LAB BLOOD ORDERABLES Fi nal Result [facility] 56-02 [address] [place] [address] * (ABNORMAL) FERRITIN (04/09/2024 1:24 PM EST) [facility] Ferritin 180(H) 13 - 150 ng/mL 04/10/2024 5:00 AM EST LAB[facility]ATORY [facility] Comment:Postmenopausal women have higher ferritin levels than pre-menopausal women. The above reference interval is based on pre-menopausal women. Blood Venous blood specimen / Unknown Venipuncture / Unknown 04/09/2024 1:24 PM EST 04/09/2024 1:24 PM EST Buz DO LAB BLOOD ORDERABLES Fi nal Result LAB[facility]ATORY [facility] [address] [place] [address] * (ABNORMAL) TSH WITH FREE T4 IF INDICATED (04/09/2024 1:24 PM EST) TSH 23.50(H) 0.27 - 4.20 uIU/mL 04/10/2024 5:00 AM EST [facility] Blood Venous blood specimen / Unknown Venipuncture / Unknown 04/09/2024 1:24 PM EST 04/09/2024 1:24 PM EST [facility] Eugenia Zafariter DO LAB BLOOD ORDERABLES Fi nal Result Performing Organization Address City/[facility] Co de Phone Number LABORATORY [facility] [address] [place] [address] * (ABNORMAL) VITAMIN B12 (04/09/2024 1:24 PM EST) Pathologist [facility] Vitamin B12 >2,000(H) 232 - 1,245 pg/mL 04/10/2024 5:00 AM EST LAB[facility]ATORY [facility] Blood Venous blood specimen / Unknown Venipuncture / Unknown 04/09/2024 1:24 PM EST 04/09/2024 1:24 PM EST [facility] Eugenia Keiter DO LAB BLOOD ORDERABLES Fi nal Result Performing Organization Address City/[facility] de Phone Number LABORATORY [address] [address] documented in this encounter Visit Diagnoses Diagnosis Peripheral polyneuropathy- Primary Unspecified hereditary and idiopathic peripheral neuropathy documented in this encounter Care Teams Brancher Relationship Specialty Start Date End Date Josie Ha MD [address] [place] [address] [place] [address] PCP - General Internal Medicine 11/23/20 documented as of this encounter"
--- OUTSIDE RECORDS SUMMARY | 2024-04-20 08:29 | External Medical Summary ---
Author Name Unknown Address Unknown Organization K09:[facility] [address] [place] [address] Laboratory Report Ordering Provider Test Date Status ALBERTO HINOJOSA 04/09/2024 13:24:02 Final Observation Date Value Abnormality Reference (Units ) Status SYNC LEUKOCYTES IN BLOOD BY AUTOMATED COUNT 04/09/2024 13:24:02 11.22 Above high normal 4.00-10.80 (K/uL) Final Segs 04/09/2024 13:24:02 59.6 40.0-75.0 (%) Final Lymphs % 04/09/2024 13:24:02 29.7 18.0-42.0 (%) Final Monos 04/09/2024 13:24:02 8.1 1.0-11.0 (%) Final Eosinophils 04/09/2024 13:24:02 2.1 0.0-6.0 (%) Final Basos 04/09/2024 13:24:02 0.5 0.0-2.0 (%) Final Absolute Segs 04/09/2024 13:24:02 6.68 1.80-7.70 (K/uL) Final Lymphs, absolute 04/09/2024 13:24:02 3.33 1.00-4.80 (K/ul) Final Monos, Abs 04/09/2024 13:24:02 0.91 0.00-1.10 (K/uL) Final Eos, Abs 04/09/2024 13:24:02 0.24 0.00-0.70 (K/uL) Final Basos, Abs 04/09/2024 13:24:02 0.06 0.00-0.20 (K/uL) Final Performing Location [facility] [address] [place] [address]
--- OUTSIDE RECORDS SUMMARY | 2024-04-20 08:29 | External Medical Summary | Summary of Care ---
Author Name Unknown Organization [facility] Address [address] [place] [address] Phone [phone] Care Team Providers Care Junior Linux Administrator Name Role Phone Josie Ha MD Primary Care Provider Reason for Visit * Reason Comments Rash Encounter Details Date Type Department Care Team (Late st Contact Info) Description 10/25/2023 12:20 PM EDT Telemedicine Virtual Urgent Care [address] [place], [place] [phone] Germaine Srivastava CRNP [address] [place] [address] Irritant contact dermatitis due to plants, except food* Allergies No known active allergiesdocumented as of this encounter (statuses as of 10/25/2023) Medications Medication Sig Dispensed Refills Start Date End Date Status Levonorgestrel 20 MCG/24HR Intrauterine Intrauterine DeviceIndications: Insert 1 Each into uterus once. Active cetirizine (ZYRTEC) 10 MG Tablet Take 1 Tab by mouth daily. 30 Tab 11 12/21/2016 Active diphenhydramine (BENADRYL) 25 MG Tablet Take 2 Tabs by mouth every 6 hours as needed (for worsening itching or rash/hives). 30 Tab 12/21/2016 Active Naproxen 500 MG Oral Tablet (NAPROSYN)Indication s:Intercostal muscle pain Take 1 Tab by mouth 2 times a day as needed for Pain. With food 60 Tab 01/17/2020 Active Multivitamin Adult Oral Tablet Take by mouth. Active Probiotic Acidophilus BioBeads Oral Capsule Take 1 Capsule by mouth in the morning and 1 Capsule at noon and 1 Capsule in the evening. Take with meals. Active Calcium 1000 + D 1000-20 MG-MCG Oral Tablet (Calcium Carb-Cholecalciferol ) Take by mouth. Active Tavaborole 5 % External SolutionIndications: Onychomycosis Apply to affected toenail daily 10 mL 1 07/18/2022 Active Econazole Nitrate 1 % External Cream (Spectazole)Indicati ons:H/O tinea,Onychomycosis Apply 2x weekly to feet and nails bed bug exterminator for prevention of reflaring of fungus. 85 g 2 07/25/2023 Active predniSONE 10 MG Oral Tablet (Deltasone)Indicatio ns:Irritant contact dermatitis due to plants, except food Take 5 tabs for 2 days, 4 tabs for 2 days, 3 tabs for 2 days, 2 tabs for 2 days 1 tab for 2 days 30 Tablet 10/25/2023 Active documented as of this encounter (statuses as of 10/25/2023) Active Problems Problem Noted Date Diagnosed Date Mixed rhinitis 12/21/2016 Pruritic disorder 12/21/2016 Presence of intrauterine contraceptive device (I UD) 02/29/2016 Acne 04/28/2009 Tobacco use disorder documented as of this encounter (statuses as of 10/25/2023) Resolved Problems Problem Noted Date Diagnosed Date Resolved Date Tobacco use disorder 09/22/2008 013 NONTOX UNINODULAR GOITER CONTRACEPT PILL SURVEILL documented as of this encounter (statuses as of 10/25/2023) Immunizations Name Administration Dates Next Due COVID-19 mRNA, LNP-s, No Pre serve, 2-Dose Series ([facility]) 03/05/2021,07/06/2020,06/14/2020 Seasonal Influenza Virus Vac cine, Unspecified [...] the money to buy more. Never true 09/30/19 23 Within the past 12 months, t he food you bought just didn't last and you didn't have money to get more. Never true 09/29/2022 Childcare Answer Date Recorded Do you feel overwhelmed with taking care of a child, family member or friend? No 09/29/2022 Does your family need help f inding childcare? (Household - for ages 0-17 years) Not on file 09/29/2022 Clothing Answer Date Recorded Have you been unable to get clothing when it was really needed? No 09/29/2022 Is your family able to get c lothes or diapers when needed? (Household - for ages 0-17 years) Not on file 09/29/2022 Personal Safety Answer Date Recorded Do you feel unsafe or have concerns for your saf ety? No 09/29/2022 Do you have concerns for you r family's safety? (Household - for ages 0-17 years) Not on file 09/29/2022 Utilities Answer Date Recorded Do you have trouble paying y our heating, water, or electric bill? (Adult - for ages 18 years and over) Not on file 10/02/2023 Is your family able to pay t he heat, water, or electric bill? (Household - for ages 0-17 years) Not on file 10/02/2023 Does your family have access to good internet? (Household - for ages 0-17 years) Not on file 10/02/2023 Employment Status Answer Date Recorded Are you unemployed or without regular income? No 09/29/2022 Does the household have a re gular source of income? (Household - for ages 0-17 years) Not on file 09/29/2022 Social Connections Answer Date Recorded How often do you feel lonely or isolated from those around you? (Adult - for ages 18 years and over) Not on file 10/02/2023 Financial Resource Strain Answer Date R ecorded Do you have any trouble payi ng for your medications, or do you think you might in the future? No 09/29/2022 Does your family have troubl e paying for medicine? (Household - for ages 0-17 years) Not on file 09/29/2022 Transportation Needs Answer Date Record ed READ ONLY Do you have troubl e getting a ride to medical visits or work? Never True 09/29/2022 Does your family have a hard time getting a ride to doctors visits? (Household - for ages 0-17 years) Not on file 09/29/2022 Has lack of transportation k ept you from medical appointments, meetings, work, or from getting things needed for daily living? Check all that apply. (Adult - for ages 18 years and over) Not on file 09/29/2022 Do you (or your family) have trouble finding or paying for a ride (transportation)? (Household - for ages 0-17 years) Not on file 09/29/2022 Housing Stability Answer Date Recorded Do you currently live in a s helter or have no steady place to sleep at night? No 09/29/2022 READ ONLY Do you think you a re at risk of becoming homeless? No 09/29/2022 Does your family worry about paying for your home or becoming homeless? (Household - for ages 0-17 years) Not on file 0 09/29/2022 Are you homeless or worried that you might be in the future? (Adult - for ages 18 years and over) Not on file Are you (or your family) zachary eless or worried that you might be in the future? (Household - for ages 0-17 years) Not on file Food Insecurity Answer Date Recorded Do you need food for this week? No 09/29/2022 Are you able to get enough f ood for your family? (Household - for ages 0-17 years) Not on file 09/29/2022 Does your family need food t his week? (Household - for ages 0-17 years) Not on file 09/29/2022 Do you always have enough fo od for your family? (Household - for ages 0-17 years) Not on file 09/29/2022 Sex and Gender Information Value Date Recorded Sex Assigned at Female 02/13/2022 10:10 PM EST Gender Identity Female 02/13/2022 10:10 PM EST Sexual Orientation Straight 02/13/2022 10 :10 PM EST Job Start Date Occupation Industry Not on file Not on file Not on file documented as of this encounter Progress Notes * Germaine Srivastava CRNP - 10/25/2023 12:20 PM EDT Patient location: HOME. I was not in a hospital or clinic location. After connecting through [employer], patient was verified with two unique identifiers. Patient (or authorized legal car sales representative) was then informed that this was a Telemedicine visit and being conducted confidentially over secure lines. Methods to assure confidentiality were taken. Patient acknowledged consent and understanding of privacy and security of the Telemedicine visit. The patient agreed to participate. HPI: Carmen Manzanares is a 48 year old female who presents for evaluation of an itchy rash she believes is poison efren. Was out clearing some brush in yard recently. It is located on BLUE and BLLE. Sx onset 2 days ago. Tried benadryl cream. ROS: See HPI for pertinent positives and negatives. PAST MEDICAL HISTORY: ALLERGIES- MEDS - PAST HOSP- PAST SURG- ROS - FAM HIST - Past Surgical History: Procedure Laterality Date COLONOSCOPY 07/07/2022 COLONOSCOPY, DIAGNOSTIC (RECTUM) 07/07/2022 normal, repeat 10 yrs / COLONOSCOPY FLEXIBLE PROXIMAL DIAGNOSTIC performed by Nathalia Hu DO atENDOSCOPY [facility] LEVONORGESTREL-RELEASING IUD, 52 MG, 3 YEAR 02/09/2016 Social History Tobacco Use Smoking status: Former Current packs/day: 0.00 Average packs/day: 1 pack/day for 5.0 years (5.0 ttl pk-yrs) Types: Cigarettes Start date: 06/15/2017 Quit date: 06/15/2022 Years since quittin.3 Smokeless tobacco: Never Tobacco comments: Quit and restarted many times Substance Use Topics Alcohol use: Yes Types: 3 12 oz of beer, 1 5 oz of wine per week Comment: social Vaping/E-Cigarette Use Vaping/E-Cigarette Substances Vaping/E-Cigarette Devices Patient Active Problem List Diagnosis Acne Presence of intrauterine contraceptive device (IUD) Tobacco use disorder Mixed rhinitis Pruritic disorder Review of patient's allergies indicates: No Known Allergies Current Outpatient Medications Medication Sig Dispense Refill predniSONE 10 MG Oral Tablet (Deltasone) Take 5 tabs for 2 days, 4 tabs for 2 days, 3 tabs for 2 days, 2 tabs for 2 days 1 tab for 2 days 30 Tablet 0 Levonorgestrel 20 MCG/24HR Intrauterine Intrauterine Device Insert 1 Each into uterus once. cetirizine (ZYRTEC) 10 MG Tablet Take 1 Tab by mouth daily. 30 Tab 11 diphenhydramine (BENADRYL) 25 MG Tablet Take 2 Tabs by mouth every 6 hours as needed (for worseningitching or rash/hives). 30 Tab Naproxen 500 MG Oral Tablet (NAPROSYN) Take 1 Tab by mouth 2 times a day as needed for Pain. With food 60 Tab 0 Multivitamin Adult Oral Tablet Take by mouth. Probiotic Acidophilus BioBeads Oral Capsule Take 1 Capsule by mouth in the morning and 1 Capsule atnoon and 1 Capsule in the evening. Take with meals. Calcium 1000 + D 1000-20 MG-MCG Oral Tablet (Calcium Carb-Cholecalciferol) Take by mouth. Tavaborole 5 % External Solution Apply to affected toenail daily 10 mL 1 Econazole Nitrate 1 % External Cream (Spectazole) Apply 2x weekly to feet and nails longterm for prevention of reflaring of fungus. 85 g 2 No current facility-administered medications for this visit. OBJECTIVE: PHYSICAL EXAM: Vitals not obtained. Exam consistent with telemedicine visit. General: alert, healthy, and no distress Skin: scattered maculopapular rash on BLUEs and BLLEs. ASSESSMENT/PLAN: Irritant contact dermatitis due to plants, except food (Primary) - predniSONE 10 MG Oral Tablet (Deltasone); Take 5 tabs for 2 days, 4 tabs for 2 days, 3 tabs for 2days, 2 tabs for 2 days 1 tab for 2 days Limited evaluation d/t nature of telemedicine visit. Complete prednisone as ordered. May use benadryl, cool oatmeal baths, hydrocortisone prn. If sx worsen or fail to improve, f/u with PCP or report to nearest CC location. Patient/guardian demonstrates understanding of the visit, course of treatment, and instructions. [facility] documented in this encounter Plan of Treatment Upcoming Encounters Date Type Department Care Team (Late st Contact Info) Description 12/01/2023 11:30 AM EDT Imaging Radiology [facility] [address] [place] [address] 02/16/2024 3:00 PM EST Office Visit Gynecology/Obstetrics [facility] [address] [place] [address] Violet Shin CRNP [address] [place] [address] 02/19/2024 1:40 PM EST Office Visit Family Practice [facility] [address] [place] [address] Josie Ha MD [address] [place] [address] 01/23/2025 9:20 AM EDT Office Visit [address] [address] Colleen Barrera PA-C [address] [place] [address] [place] [address] Scheduled Procedures Name Priority Associated Diagnoses Date/Ti me COLONOSCOPY FLEXIBLE PROXIMA L DIAGNOSTIC Recall Screening for colon cancer Health Maintenance Due Date Last Done Comments Hepatitis C Screening 1994 Hepatitis B Vaccine (1 of 3 - 19+ 3-dose series) 06/23/1995 Cologuard 2021 Fecal Occult Blood Test 2021 Sigmoidoscopy 2021 COVID-19 Vaccine ( season) 2022 03/05/2021, 07/06/2020, 06/14/2020 Mammogram 11/30/2023 11/29/2022, 11/02, 11/26/2020, Additional history exists Influenza Vaccine (FLU shot) (#1) 2023 02/17/2023, 01/13/2022, 12/31/2020, Additional history exists Depression Screening 02/18/2024 02/17/2023 Lipid Panel 03/09/2025 03/09/2020 Pap Smear 03/10/2025 03/10/2022, 02/01, 11/09/2016, Additional history exists Diabetes Screening 11/22/2025 11/22/2022, 1 05/10/2019, 10/07/2003 Cervical Cancer Screening 03/10/2027 HPV/Co-Test 03/10/2027 03/10/2022 DTaP,Tdap,and Td Vaccines (2 - Td or Tdap) 06/18/2027 [...] as of this encounter Visit Diagnoses Diagnosis Irritant contact dermatitis due to plants, except food- Primary Contact dermatitis and other eczema due to plants (except food) Screening mammogram for breast cancer documented in this encounter Care Teams Junior Linux Administrator Relationship Specialty Start Date End Date Josie Ha MD [address] [place] [address] PCP - General Internal Medicine 11/23/20 documented as of this encounter
[2024-04-20] MEDS: SODIUM CHLORIDE 0.9% 1,000 ML IV SCH (08:35)
[2024-04-20] MEDS ORDERED: ONDANSETRON INJ 2 MG/ML 2 ML VIAL IV PRN (09:06)
[2024-04-20] MEDS ORDERED: NITROGLYCERIN SL 0.4 MG/TAB TAB SL PRN (09:06)
[2024-04-20] MEDS ORDERED: HYDROmorphone INJ 0.5 MG/0.5 ML SYR IV PRN ×2 (09:06)
--- NOTE | 2024-04-20 09:23 | Anesthesiology Consultation ---
Date of Service April 20, 2024 Assessment & Plan (1) Encounter for pre-operative examination: Chart Review Chart Review: Acceptable Risk for Surgery History Surgery Operation Date: 04/20/24 11:00 Proposed Procedures p Laparoscopic Cholecystectomy - Antoni Benavides DO Height/Weight Height: 5 ft 2 in Weight: 66.3 kg Allergies Allergy/AdvReac Type Severity Reaction Status Date / Time No Known Allergies Allergy Unverified 04/20/24 09:13 Medications Home Medications Medication Instructions Recorded Confirmed Last Taken levothyroxine 75 mcg tablet 75 mcg PO DAILY 04/20/24 04/20/24 Unknown Active Medications Generic Name Dose Route Start Last Admin Trade Name Freq PRN Reason Stop Dose Admin Sodium Chloride 1,000 mls @ 125 mls/hr 04/20/24 07:45 04/20/24 08:35 Nss IV 04/21/24 07:44 125 mls/hr .Q8H SHENA Administration Past Medical History Medical History (Updated 04/20/24 @ 09:23 by John Aponte MD) History of use of contraceptive intrauterine device (IUD) Quit smoking within past year Hypothyroid Past Surgical History Surgical History (Updated 04/20/24 @ 09:22 by John Aponte MD) Hx of colonoscopy Social History Smoking Status: Former smoker Physical Exam Vital Signs Last Vital Signs Temp 36.4 C L 04/20/24 00:15 Pulse 70 04/20/24 08:35 Resp 18 04/20/24 08:35 BP 122/84 04/20/24 08:35 Pulse Ox 95 04/20/24 08:35 O2 Del Method Room Air 04/20/24 08:35 O2 Flow Rate 0 04/20/24 02:42 Testing Laboratory Results 04/20/24 00:26 04/20/24 00:26 Urine Color Yellow 04/20/24 00:26 Urine Appearance Turbid (Clear) A 04/20/24 00:26 Urine pH >= 9.0 (4.5-7.5) H 04/20/24 00:26 Ur Specific [place] 1.015 (1.000-1.030) 04/20/24 00:26 Urine Protein Trace (Negative) H 04/20/24 00:26 Urine Glucose (UA) Negative (Negative) 04/20/24 00:26 Urine Ketones Negative (Negative) 04/20/24 00:26 Urine Nitrite Negative (Negative) 04/20/24 00:26 Ur Leukocyte Esterase Negative (Negative) 04/20/24 00:26 Urine WBC (Auto) 0-5 /hpf (0-5) 04/20/24 00:26 Urine RBC (Auto) 0-2 /hpf (0-2) 04/20/24 00:26 U Hyaline Cast (Auto) 0-2 /lpf (0-2) 04/20/24 00:26 U Epithel Cells (Auto) 3-5 /hpf (0-2) H 04/20/24 00:26 Urine Bacteria (Auto) None Seen (None Seen) 04/20/24 00:26 Electrocardiogram Date: 04/20/24 Findings: + NSR @ (82) and + NSST changes
[2024-04-20] MEDS: LEVOTHYROXINE SODIUM 75 MCG TABLET PO SCH (09:48)
--- NOTE | 2024-04-20 09:50 | Magnetic Resonance Report ---
EXAM: MR MRCP CLINICAL HISTORY: Upper abdominal pain across the abdomen after fried foods. no other complaints. dld TECHNIQUE: Multiplanar multisequence of the MRI of the abdomen MRCP without intravenous contrast was performed. COMPARISON: US on 04/20/2024. FINDINGS: Gallbladder: Normal size. Multiple gallstones were noted adjacent to the gallbladder neck measuring up to 8mm. Gallladder wall appreciation is limited in these sequences. Bile Ducts: Intrahepatic and extrahepatic bile ducts are normal in caliber. The common bile duct is normal in caliber measuring up to 3.8mm. with no evidence of strictures or filling defects. No evidence of choledocholithiasis. Pancreatic Duct: No evidence of ductal dilatation or filling defects. IMPRESSION: 1. The gallbladder is normal in size. Multiple gallstones were noted adjacent to the gallbladder neck measuring up to 8mm, these correlate with the findings in the US on 04/20/2024. 2. No evidence of biliary or pancreatic ductal abnormalities. Electronically signed by Carol Francis 04-20-2024 09:50 AM
--- NOTE | 2024-04-20 10:23 | Communication Note ---
Date of Service: April 20, 2024 ER and surgery notes reviewed. Acute cholecystitis. Liver enzymes are significantly elevated. Bile duct at the upper range of normal 6 mm. However MRCP currently shows it at 3.8 cm without filling defects. Potentially passed stone. We just proceed with cholecystectomy if liver enzymes do not normalize we can revisualize the possibility of a retained stone. Potential intraoperative cholangiogram if feasible. Will follow-up postoperatively
[2024-04-20 10:28] LABS: Basophils # (auto) 0.04 K/uL (0.00-0.20); Basophils % (auto) 0.3 %; Eosinophils % (auto) 2.5 %; Hematocrit (blood only) 36.7 % (37.0-47.0); Hemoglobin 12.7 g/dl (12.0-16.0); Immature Granulocytes # (auto) 0.18 K/uL (0.01-0.20); Immature Granulocytes % (auto) 1.5 %; Lymphocytes # (auto) 1.55 K/uL (1.20-3.40); Lymphocytes % (auto) 12.9 %; Mean Corpuscular Hemoglobin 31.1 pg (25.0-34.0); Mean Corpuscular Hgb Conc 34.6 g/dL (32.0-36.0); Mean Corpuscular Volume 89.7 fL (80.0-100.0); Mean Platelet Volume 8.9 fL (9.4-12.4); Monocytes # (auto) 0.87 K/uL (0.11-0.59); Monocytes % (auto) 7.3 %; Neutrophils # (auto) 9.04 K/uL (1.40-6.50); Neutrophils % (auto) 75.5 %; Platelet Count 342 K/uL (130-400); RDW Coefficient of Variation 13.8 % (11.5-14.5); RDW Standard Deviation 44.9 fL (36.4-46.3); Red Blood Count 4.09 M/uL (4.20-5.40); White Blood Count 11.98 K/ul (4.8-10.8)
[2024-04-20 10:47] LABS: Albumin Level 3.5 gm/dl (3.4-5.0); BUN Creatinine Ratio 14.8 (10-20); Bilirubin Direct 2.1 mg/dl (0-0.2); Bilirubin,Total 3.1 mg/dl (0.2-1.0); Calcium 8.8 mg/dl (8.6-10.3); Creatinine Clr Calc Pharmacy 76.7 ml/min; Magnesium 2.1 mg/dl (1.7-2.4); Potassium 4.4 mmol/L (3.5-5.1); Total Protein 5.5 gm/dl (6.0-8.3)
--- NOTE | 2024-04-20 10:57 | History & Physical Report ---
Date of Service April 20, 2024 Assessment & Plan (1) Elevated LFTs: Plan: Typically would just acute cholecystitis liver enzymes are not elevated. Reason for current elevation may be passed common duct stone, inflammation surrounding pressure from the actual gallbladder inflammation itself. At this point I would just watch the trend of the liver enzymes. She can proceed with acute cholecystectomy at surgery's discretion. If an intraoperative cholangiogram is feasible could be performed. If not we will follow liver enzymes post cholecystectomy to document normalization of the liver enzymes did not normalize or were increasing we could consider further studies such as a repeat MRCP or a ERCP. (2) Acute cholecystitis: Plan: Surgery planned. Admission and Anticipated Discharge Date Admission Date: April 20, 2024 History of Present Illness Chief Complaint: Acute cholecystitis, elevated liver enzymes. Primary Care Provider: Josie Ha MD Patient comes in with fairly acute onset of abdominal pain that persist. Ultrasound imaging consistent with acute cholecystitis. Bile duct at the upper range of normal. Subsequent MRCP does not show common duct stone. Reports the duct at 3.8 mm. This is normal range Patient seen in the emergency room. Looking at her phone. Some discomfort in the right upper quadrant. Bowel sounds present but decreased. Patient does not appear jaundiced. She does not appear acutely toxic at this time Allergies Allergy/AdvReac Type Severity Reaction Status Date / Time No Known Allergies Allergy Unverified 04/20/24 09:13 Home Medications Medication Instructions Recorded Confirmed Type levothyroxine 75 mcg tablet 75 mcg PO DAILY 04/20/24 04/20/24 History Past Med/Surg History Problem List (Updated 04/20/24 @ 09:23 by John Aponte MD) Encounter for pre-operative examination Elevated LFTs Acute cholecystitis Medical History (Updated 04/20/24 @ 09:23 by John Aponte MD) History of use of contraceptive intrauterine device (IUD) Quit smoking within past year Hypothyroid Surgical History (Updated 04/20/24 @ 09:22 by John Aponte MD) Hx of colonoscopy Social History Smoking Status: Former smoker Feels Safe at Home: Yes Review of Systems Afebrile Denies shortness of breath or exertional chest pain GI as mentioned history present illness [facility] [employer] psych endocrine negative view of systems otherwise negative Physical Exam Physical Exam: Alert and orientated. Does not appear acutely toxic at this time Eyes did not reveal any jaundice. Neck no obvious adenopathy Chest and heart sounds normal Abdomen some tenderness in the upper abdomen area. No guarding rebound rigidity. Bowel sounds present but [employer] psych endocrine negative exam otherwise negative Results & Data Vital Signs (Past 12 Hours) Vital Signs Temp Pulse Pulse Resp BP BP Pulse Ox 04/20/24 10:11 68 04/20/24 08:35 70 18 122/84 95 04/20/24 06:06 68 20 98 04/20/24 06:03 73 04/20/24 04:56 75 20 114/77 98 04/20/24 03:55 80 20 107/69 96 04/20/24 02:42 78 22 98 04/20/24 02:30 78 24 99/68 L 98 04/20/24 02:01 80 17 112/58 L 98 04/20/24 01:57 72 04/20/24 01:57 71 19 98 04/20/24 00:15 36.4 C L 106 H 18 120/62 97 O2 Del Method O2 Flow Rate 04/20/24 10:11 04/20/24 08:35 Room Air 04/20/24 06:06 Room Air 04/20/24 06:03 04/20/24 04:56 Room Air 04/20/24 03:55 Room Air 04/20/24 02:42 Room Air 0 04/20/24 02:30 04/20/24 02:01 04/20/24 01:57 04/20/24 01:57 Room Air 04/20/24 00:15 Room Air Laboratory Results Transaminitis. Elevated white count. Normal lipase Diagnostic Findings See imaging studies addressed above Code Status & VTE Plan VTE Prophylaxis Plan VTE Prophylaxis will be ordered: Yes Coding Level of Care Code 66786 INT INP/OBS CARE 40MIN Diagnoses Elevated LFTs R79.89 Acute cholecystitis K81.0
[2024-04-20] MEDS: Patient's ALLERGY Info needs ENTERED STA (12:03)
[2024-04-20] MEDS: PIPERACILLIN/TAZOBACTAM 4.5 GM/100 ML BAG IV SCH (12:04)
--- NOTE | 2024-04-20 13:04 | Communication Note ---
Date of Service: April 20, 2024 Notified by general surgery of significant increase in liver enzymes transaminases now close to the thousand. Bilirubin up to 3.1. Reassessed patient in the emergency room. Discussed gallbladder issues versus common duct stones. Though her MRCP is normal this level of enzyme elevation is suggestive of a stone. Her lipase is normal which is against passage of the stone as is her increasing liver enzymes. Surgery noted that intraoperative cholangiogram may not be able to be performed. An obstructed bile duct may increase the risk of bile leak post and/or of course cholangitis. Reviewed in detail patient ERCP risks including bleeding bowel perforation and acute pancreatitis. Patient is agreeable to proceed with ERCP. I would do that today. Will notify clinical supervisor shipping room and GI team of plan. Patient is getting broad-spectrum antibiotics. She will need indomethacin suppositories. Maintain NPO.
[2024-04-20] MEDS ORDERED: MIDAZOLAM HCL 1 MG/ML 2ML VIAL ONE (13:30)
[2024-04-20] MEDS ORDERED: fentaNYL citrate PF 100 MCG/2 ML VIAL ONE (13:31)
[2024-04-20] MEDS ORDERED: LIDOCAINE 2% 2 ML VIAL/AMP(20MG/ML) INFIL ONE (13:31)
[2024-04-20] MEDS ORDERED: ONDANSETRON INJ 2 MG/ML 2 ML VIAL ONE (13:32)
[2024-04-20] MEDS ORDERED: PROPOFOL IV EMULSION 10 MG/ML 20 ML VIAL IV ONE ×3 (13:32→14:45)
[2024-04-20] MEDS ORDERED: METOCLOPRAMIDE HCL INJ 5 MG/ML 2 ML VIAL ONE (13:33)
[2024-04-20] MEDS ORDERED: DEXAMETHASONE SOD INJ 4 MG/ML VIAL ONE (13:33)
[2024-04-20] MEDS ORDERED: SUCCINYLCHOLINE CHLORIDE 20 MG/ML 10 ML VIAL IV ONE (13:33)
[2024-04-20] MEDS ORDERED: ACETAMINOPHEN 1000 MG/100 ML IV IV ONE (13:37)
[2024-04-20] MEDS ORDERED: ATROPINE SULFATE 0.1 MG/ML 10ML SYR IV PRN (13:39)
[2024-04-20] MEDS ORDERED: fentaNYL citrate PF 100 MCG/2 ML VIAL IV PRN (13:39)
[2024-04-20] MEDS ORDERED: PROMETHAZINE HCL 6.25 MG in SODIUM CHLORIDE 0.9% 50 ML IV PRN (13:39)
[2024-04-20] MEDS ORDERED: KETOROLAC 30 MG/ML VIAL IV PRN (13:39)
[2024-04-20] MEDS: INDOMETHACIN PR ONE (14:06)
[2024-04-20] MEDS ORDERED: PHENYLEPHRINE HCL 10 MG/ML VIAL ONE (15:01)
--- NOTE | 2024-04-20 15:56 | Communication Note ---
Date of Service: April 20, 2024 ERCP For suspected common duct stone Slight dilation of the main pancreatic duct. Bile duct with long intraduodenal portion unable to deeply cannulate the common bile duct there is a filling defect consistent with a common duct stone 4-5 mm. Duct drains Patient has a retained common duct stone. Her bile duct is now been instrumented this increases the risk of onset of cholangitis duct does drain she is on broad-spectrum antibiotics think though she is going to need transferred for another attempted ERCP plus or minus a precut sphincterotomy. Will attempt to facilitate this with the hospitalist. Surgery Dr. Corrales notified through the [facility] system.
--- NOTE | 2024-04-20 16:11 | GI REPORT ---
[facility] Patient: SHELTON CESPEDES : 1975 Sex at : Female Age: 48 Years Procedure: ERCP Date: 04/20/2024 Attending Physician: Jag Sanders MD Referring MD: Romeo Christian Indications: - Abnormal liver function test - Evaluation and possible treatment of bile duct stone(s) Medications: - General Anesthesia - Indomethacin 100 mg MI - See the Anesthesia note for documentation of the administered medications Complications: - No immediate complications. Estimated Blood Loss: - Estimated blood loss: None. Procedure: - The ercp scope was introduced through the mouth and advanced to the duodenum and used to inject contrast into the bile duct. - The ERCP was technically difficult and complex due to challenging cannulation. - The patient tolerated the procedure well. Findings: - The sales service technician film was normal. - Flexible video duodenoscope was advanced to the second part of the duodenum the papilla showed a long intraduodenal bile duct. Small opening underneath the fold. No bile noted in the duodenum or coming through this orifice. Initial cannulation was of the pancreatic duct. Injection showed pancreatic duct origin. Further injection was ceased. Using the sphincter tone with bowing angulation and guidewire attempts are made to cannulate the common bile duct. Using small amounts of contrast to help visualize the anatomy we were able to inject the common bile duct. There did appear to be a common duct stone maybe for 5 mm in size unfortunately due to the anatomy with the long intraduodenal portion cannulation of the common bile duct was not achieved. The duct did drain. Impression: - Flexible video duodenoscope was advanced to the second part of the duodenum the papilla showed a long intraduodenal bile duct. Small opening underneath the fold. No bile noted in the duodenum or coming through this orifice. Initial cannulation was of the pancreatic duct. Injection showed pancreatic duct origin. Further injection was ceased. Using the sphincter tone with bowing angulation and guidewire attempts are made to cannulate the common bile duct. Using small amounts of contrast to help visualize the anatomy we were able to inject the common bile duct. There did appear to be a common duct stone maybe for 5 mm in size unfortunately due to the anatomy with the long intraduodenal portion cannulation of the common bile duct was not achieved. The duct did drain. - Common duct stone. Failure deep cannulation related to long intraduodenal bile duct ampullary orifice. - Contrast was injected to drain patient though will be at risk for cholangitis. Patient is getting IV antibiotics. Will attempt to arrange tertiary referral for reattempt and/or precut sphincterotomy Recommendation: - Clear liquid, tertiary referral. Transfer Procedure Code(s): - 04500, Endoscopic retrograde cholangiopancreatography (ERCP); diagnostic, including collection of specimen(s) by brushing or washing, when performed (separate procedure) Diagnosis Code(s): - R79.89, Other specified abnormal findings of blood chemistry - K80.50, Calculus of bile duct without cholangitis or cholecystitis without obstruction CPT(R) - 2023 copyright [employer]. All Rights Reserved. The CPT codes, CCI edits and ICD codes generated are intended as suggestions and were generated based on input data. These codes are preliminary and upon mechanical maintenance technician review may be revised to meet current compliance and payer requirements. The provider is responsible for the final determination of appropriate codes, and modifiers. Jag Sanders MD This document has been electronically signed. Note Initiated:04/20/2024 Note Completed:04/20/2024 4:10 PM \\[id number]
--- NOTE | 2024-04-20 16:25 | Anesthesiology Progress Note ---
Date of Service April 20, 2024 Anesthesia Post Procedure Vital Signs Vital Signs: Temp Pulse Pulse Resp BP BP Pulse Ox 04/20/24 16:20 36.4 C L 67 16 107/70 98 04/20/24 16:10 73 18 107/71 98 04/20/24 16:00 83 18 107/74 100 04/20/24 15:50 36.2 C L 104 H 20 119/82 99 04/20/24 13:09 76 15 113/79 98 04/20/24 12:00 71 13 122/75 95 04/20/24 11:00 69 20 113/81 96 04/20/24 10:11 68 04/20/24 09:09 75 21 108/72 95 04/20/24 08:35 70 18 122/84 95 04/20/24 08:31 67 18 122/84 97 04/20/24 06:06 68 20 98 04/20/24 06:03 73 04/20/24 04:56 75 20 114/77 98 04/20/24 03:55 80 20 107/69 96 04/20/24 02:42 78 22 98 04/20/24 02:30 78 24 99/68 L 98 04/20/24 02:01 80 17 112/58 L 98 04/20/24 01:57 72 04/20/24 01:57 71 19 98 04/20/24 00:15 36.4 C L 106 H 18 120/62 97 O2 Del Method O2 Flow Rate 04/20/24 16:20 Room Air 04/20/24 16:10 Room Air 04/20/24 16:00 Oxymask 3 04/20/24 15:50 Oxymask 6 04/20/24 13:09 Room Air 04/20/24 12:00 Room Air 04/20/24 11:00 Room Air 04/20/24 10:11 04/20/24 09:09 Room Air 04/20/24 08:35 Room Air 04/20/24 08:31 Room Air 04/20/24 06:06 Room Air 04/20/24 06:03 04/20/24 04:56 Room Air 04/20/24 03:55 Room Air 04/20/24 02:42 Room Air 0 04/20/24 02:30 04/20/24 02:01 04/20/24 01:57 04/20/24 01:57 Room Air 04/20/24 00:15 Room Air Pain Intensity Bilateral Upper Abdomen: Pain Intensity: 10 Transfer of Care Handoff Completed per policy Notes Mental Status: alert / awake / arousable Patient Amnestic to Procedure: Yes Nausea / Vomiting: adequately controlled Pain: adequately controlled Airway Patency, RR, SpO2: stable & adequate BP & HR: stable & adequate Hydration State: stable & adequate Anesthetic Complications: no major complications apparent
--- NOTE | 2024-04-20 16:46 | Communication Note ---
Date of Service: April 20, 2024 The patient was seen and examined in the emergency room. She is 48-year-old female presented with acute cholecystitis and noted to have choledocholithiasis with ERCP which will require further intervention and for that the patient will be transferred to [facility] for continued care. The patient was doing well in the emergency room and during examination the pain was controlled and she was afebrile and remained hemodynamically stable. The GI specialist did talk to [facility] and she will be transferred in due time to have intended procedure.She was hemodynamically stable following the ERCP. She has been on intravenous Zosyn which will be continued during transfer. She was also seen by surgery team and laparoscopic cholecystectomy was not done yet. Will finish up with necessary paperwork. Dr Live Christian
--- NOTE | 2024-04-20 16:46 | Communication Note ---
Date of Service: April 20, 2024 Patient assessed in PACU. Comfortable with no abdominal pain. Transfer has been arranged and in process to [place] for potential precut sphincterotomy to allow decannulation common bile duct. Reviewed with hospitalist and gastroenterology at [place]. Patient is aware of reasons for transfer.
[2024-04-20] MEDS: INDOMETHACIN 50 MG SUPP PR SCH (17:19)
[2024-04-20] MEDS: BUPIVACAINE/EPINEPHRINE 0.25% 1:200,000 30 ML VIAL ONE (17:19)
[2024-04-20] MEDS: FAMOTIDINE/PF 20 MG/2 ML VIAL IV ONE (17:19)
--- NOTE | 2024-04-20 17:32 | Discharge Summary ---
Date of Service April 20, 2024 Admission HPI Per Admitting Provider Patient comes in with fairly acute onset of abdominal pain that persist. Ultrasound imaging consistent with acute cholecystitis. Bile duct at the upper range of normal. Subsequent MRCP does not show common duct stone. Reports the duct at 3.8 mm. This is normal range Patient seen in the emergency room. Looking at her phone. Some discomfort in the right upper quadrant. Bowel sounds present but decreased. Patient does not appear jaundiced. She does not appear acutely toxic at this time Admission Exam Per Admitting Provider Physical Exam: Alert and orientated. Does not appear acutely toxic at this time Eyes did not reveal any jaundice. Neck no obvious adenopathy Chest and heart sounds normal Abdomen some tenderness in the upper abdomen area. No guarding rebound rigidity. Bowel sounds present but [employer] DIRECTOR psych endocrine negative exam otherwise negative Principal Diagnosis Cholecystitis with Choledocholithiasis,S/P ERCP and will need further ERCP procedure Discharge Data Allergies Allergy/AdvReac Type Severity Reaction Status Date / Time No Known Allergies Allergy Unverified 04/20/24 09:13 Consultations 04/20/24 04:51 ED Decision to Admit Stat 04/20/24 09:06 Consult Gastroenterology Routine Consult General Surgery Routine Procedures Performed Laboratory Results WBC 11.98 K/ul (4.8-10.8) H D 04/20/24 10:09 RBC 4.09 M/uL (4.20-5.40) L 04/20/24 10:09 Hgb 12.7 g/dl (12.0-16.0) 04/20/24 10:09 Hct 36.7 % (37.0-47.0) L 04/20/24 10:09 MCV 89.7 fL (80.0-100.0) 04/20/24 10:09 MCH 31.1 pg (25.0-34.0) 04/20/24 10:09 MCHC 34.6 g/dL (32.0-36.0) 04/20/24 10:09 RDW Std Deviation 44.9 fL (36.4-46.3) 04/20/24 10:09 RDW Coeff of Raj 13.8 % (11.5-14.5) 04/20/24 10:09 Plt Count 342 K/uL (130-400) 04/20/24 10:09 MPV 8.9 fL (9.4-12.4) L 04/20/24 10:09 Immature Gran % (Auto) 1.5 % 04/20/24 10:09 Neut % (Auto) 75.5 % 04/20/24 10:09 Lymph % (Auto) 12.9 % 04/20/24 10:09 [place] % (Auto) 7.3 % 04/20/24 10:09 Eos % (Auto) 2.5 % 04/20/24 10:09 Baso % (Auto) 0.3 % 04/20/24 10:09 Neut # (Auto) 9.04 K/uL (1.40-6.50) H 04/20/24 10:09 Lymph # (Auto) 1.55 K/uL (1.20-3.40) 04/20/24 10:09 [place] # (Auto) 0.87 K/uL (0.11-0.59) H 04/20/24 10:09 Eos # (Auto) 0.30 K/uL (0.00-0.50) 04/20/24 10:09 Baso # (Auto) 0.04 K/uL (0.00-0.20) 04/20/24 10:09 Immature Gran # (Auto) 0.18 K/uL (0.01-0.20) 04/20/24 10:09 Polychromasia 1+ 04/20/24 00:26 Sodium 139 mmol/L (136-145) 04/20/24 10:09 Potassium 4.4 mmol/L (3.5-5.1) D 04/20/24 10:09 Chloride 111 mmol/L (98-107) H 04/20/24 10:09 Carbon Dioxide 25 mmol/L (21-32) 04/20/24 10:09 Anion Gap 3 (3-11) 04/20/24 10:09 BUN 12 mg/dl (6-23) 04/20/24 10:09 Creatinine 0.81 mg/dl (0.6-1.2) 04/20/24 10:09 Est Cr Clr Drug Dosing 76.7 ml/min 04/20/24 10:09 eGFR 90.05 04/20/24 10:09 BUN/Creatinine Ratio 14.8 (10-20) 04/20/24 10:09 Glucose 93 mg/dl (70-99(Fasting)) 04/20/24 10:09 Lactate 1.8 mmol/L (0.4-2.0) 04/20/24 06:12 Calcium 8.8 mg/dl (8.6-10.3) 04/20/24 10:09 Magnesium 2.1 mg/dl (1.7-2.4) 04/20/24 10:09 Total Bilirubin 3.1 mg/dl (0.2-1.0) H D 04/20/24 10:09 Direct Bilirubin 2.1 mg/dl (0-0.2) H 04/20/24 10:09 AST 1016 U/L (13-39) H 04/20/24 10:09 ALT 991 U/L (7-52) H 04/20/24 10:09 Alkaline Phosphatase 103 U/L (34-104) 04/20/24 10:09 Total Protein 5.5 gm/dl (6.0-8.3) L D 04/20/24 10:09 Albumin 3.5 gm/dl (3.4-5.0) 04/20/24 10:09 Globulin 2.7 gm/dl (2.5-4.0) 04/20/24 00:26 Albumin/Globulin Ratio 1.6 (0.9-2) 04/20/24 00: Lipase 33 U/L (11-82) 04/20/24 00:26 Procalcitonin < 0.02 ng/ml (0-0.5) 04/20/24 00: HCG, Qual Negative (Negative) 04/20/24 00: Urine Color Yellow 04/20/24 00:26 Urine Appearance Turbid (Clear) A 04/20/24 00:26 Urine pH >= 9.0 (4.5-7.5) H 04/20/24 00:26 Ur Specific [place] 1.015 (1.000-1.030) 04/20/24 00: Urine Protein Trace (Negative) H 04/20/24 00:26 Urine Glucose (UA) Negative (Negative) 04/20/24 00:26 Urine Ketones Negative (Negative) 04/20/24 00: Urine Blood Negative (Negative) 04/20/24 00: Urine Nitrite Negative (Negative) 04/20/24 00:26 Urine Bilirubin Negative (Negative) 04/20/24 00:26 Urine Urobilinogen Negative (Negative) 04/20/24 00:26 Ur Leukocyte Esterase Negative (Negative) 04/20/24 00:26 Urine WBC (Auto) 0-5 /hpf (0-5) 04/20/24 00:26 Urine RBC (Auto) 0-2 /hpf (0-2) 04/20/24 00:26 U Hyaline Cast (Auto) 0-2 /lpf (0-2) 04/20/24 00:26 U Epithel Cells (Auto) 3-5 /hpf (0-2) H 04/20/24 00:26 Urine Bacteria (Auto) None Seen (None Seen) 04/20/24 00:26 Impressions Gallbladder Ultrasound 04/20/24 02:25 EXAM: US gallbladder CLINICAL HISTORY: HX: NO PREV. RUQ PAIN. VOMITING. ELEVATED LFTs AND WBC. TECHNIQUE: Ultrasound of the gallbladder was performed in B-mode and color Doppler. COMPARISON: None. FINDINGS: Pancreas not visualized due to overlying bowel gas. The liver is seen enlarged measuring 17.6 cm with increased parenchymal echogenicity. A small calcified focus is seen within the right lobe of the liver measuring 3 x 3 x 4 mm. The portal vein is seen patent hepatopetal flow. The common bile duct is not dilated measuring 5.7 mm. Extrahepatic part of the common bile duct is not visualized due to increased bowel gas. The gallbladder is seen distended with multiple stones seen within. The gallbladder is seen measuring 9.4 cm in longitudinal diameter. Increased gallbladder wall thickness measuring up to 7 mm at some parts of the gallbladder. Possible pericholecystic fluid is noted. Torrez sign could not be evaluated as the patient took medication. The right kidney is seen within normal limits. Normal blood flow seen within the right kidney. No hydronephrosis calculi seen within the right kidney IMPRESSION: 1. Acute calcular cholecystitis. 2. Fatty enlarged liver. Right hepatic lobe small calcified focus. 3. Clinical correlation is advised. Electronically signed by Carol Francis 04-20-2024 05:04 AM Cholangiopancreatography MRI 04/20/24 05:05 EXAM: MR MRCP CLINICAL HISTORY: Upper abdominal pain across the abdomen after fried foods. no other complaints. dld TECHNIQUE: Multiplanar multisequence of the MRI of the abdomen MRCP without intravenous contrast was performed. COMPARISON: US on 04/20/2024. FINDINGS: Gallbladder: Normal size. Multiple gallstones were noted adjacent to the gallbladder neck measuring up to 8mm. Gallladder wall appreciation is limited in these sequences. Bile Ducts: Intrahepatic and extrahepatic bile ducts are normal in caliber. The common bile duct is normal in caliber measuring up to 3.8mm. with no evidence of strictures or filling defects. No evidence of choledocholithiasis. Pancreatic Duct: No evidence of ductal dilatation or filling defects. IMPRESSION: 1. The gallbladder is normal in size. Multiple gallstones were noted adjacent to the gallbladder neck measuring up to 8mm, these correlate with the findings in the [place] on 04/20/2024. 2. No evidence of biliary or pancreatic ductal abnormalities. Electronically signed by Carol Francis 04-20-2024 09:50 AM Operation Date: 04/21/24 07:30 <No data on this case meets the specified criteria> Ordered Studies 04/20/24 02:25 US gallbladder Stat 04/20/24 05:05 MR MRCP Stat 04/20/24 13:18 [place] ERCP biliary ductal Routine Hospital Course (1) Acute cholecystitis: 48-year-old female with past medical history significant for mixed rhinitis, presence of intrauterine contraceptive device, pruritic disorder, tobacco use disorder presents with severe abdominal pain. The pain is across upper abdomen. Denies nausea. No fevers. Pain was very severe. Normal bowel and bladder movements. No chest pain or shortness of breath. No cough. No headache. No runny nose or sore throat. Currently resting comfortably and hemodynamically stable. ERCP-As per GI For suspected common duct stone Slight dilation of the main pancreatic duct. Bile duct with long intraduodenal portion unable to deeply cannulate the common bile duct there is a filling defect consistent with a common duct stone 4-5 mm. Duct drains Patient has a retained common duct stone. Her bile duct is now been instrumented this increases the risk of onset of cholangitis duct does drain she is on broad-spectrum antibiotics think though she is going to need transferred for another attempted ERCP plus or minus a precut sphincterotomy. Will attempt to facilitate this with the hospitalist. Surgery Dr. Corrales notified through the [employer] system. She was transferred to [facility] [place] Presented with: Acute cholecystitis Elevated LFTs Gallbladder ultrasound showing acute calcular cholecystitis. Right hepatic lobe small calcified focus. Patient getting MRCP Blood pressure was soft and required fluid bolus N.p.o., IV fluids, IV Dilaudid., IV Zosyn GI and surgery consult Close monitor Hypothyroidism On Synthyroid DVT prophylaxis SCDs for now Disposition Medical floor Full code Total Time Total Time Spent Total Time Spent (In Minutes): 20 minutes Discharge Plan Discharge Items Patient Disposition: Transfer Acute Care Hospital Reason For Visit: CHOLECYSTITIS Discharge Diagnosis: laparoscopic cholecystectomy Activity: As commented below Lifting: No more than 10 pounds Bathing Comment: you can shower . No soaking in pools in bath for 2 weeks Exercise/Sports: Wait until after follow-up appointment Driving/Machine Use: no driving if taking narcotic pain medication Non-emergency contact: Surgeon Call non-emergency contact if: you have any medication questions, your symptoms worsen, your temperature is above 101.5, your wound has increased redness, your wound has increased drainage and your wound pain has increased Follow-up/Referrals: Antoni Benavides DO [Physician] - (call office for follow up in 1-2 weeks ) Josie Ha MD [Primary Care Provider] - Diet: Regular Addtl Attending Provider Instructions: You may remove your outer surgical dressing on 04/22/24. You will have small white bandages on underneath that are over your incision. You may shower with these on. They will tend to fall off on their own in a 7-10 days. Addtl Recreation Engineer Provider Instructions: These are the current inpatient medications: Current Inpatient Medications Atropine Sulfate (Atropine Sulfate 0.1 Mg/Ml 10ml Syr) 0.5 mg IV Q1M PRN PRN Reason: PACU Use-HR<40 &/or Bradycardi Stop: 04/20/24 21:39 Fentanyl Citrate (Fentanyl Citrate Pf 100 Mcg/2 Ml Vial) 25 mcg IV Q5M PRN PRN Reason: PACU Use Only-Pain Stop: 04/20/24 21:39 Hydromorphone HCl (Hydromorphone Inj 0.5 Mg/0.5 Ml Syr) 0.25 mg IV Q3H PRN PRN Reason: Moderate Pain (Scale 4, 5, 6) Stop: 05/04/24 09:05 Hydromorphone HCl (Hydromorphone Inj 0.5 Mg/0.5 Ml Syr) 0.5 mg IV Q3H PRN PRN Reason: Severe Pain (Scale 7, 8, 9,10) Stop: 05/04/24 09:05 Sodium Chloride (Nss) 1,000 mls @ 125 mls/hr IV .Q8H [facility] Stop: 04/21/24 07:44 Last Admin: 04/20/24 08:35 Dose: 125 mls/hr Piperacillin Sod/Tazobactam Sod (Zosyn) 4.5 gm in 100 mls @ 25 mls/hr IV Q8H [facility]; Protocol Stop: 04/30/24 10:59 Last Admin: 04/20/24 12:04 Dose: 25 mls/hr Promethazine HCl 6.25 mg/ (Sodium Chloride) 50.25 mls @ 204 mls/hr IV ONCE PRN PRN Reason: PACU Use Only-Nausea/Vomiting Stop: 04/20/24 21:39 Ketorolac Tromethamine (Ketorolac 30 Mg/Ml Vial) 15 mg IV ONCE PRN PRN Reason: PACU Use Only-Pain Stop: 04/20/24 21:39 Levothyroxine Sodium (Levothyroxine Sodium 75 Mcg Tablet) [facility] Stop: 05/20/24 09:05 Last Admin: 04/20/24 09:48 Dose: 75 mcg Nitroglycerin (Nitroglycerin Sl 0.4 Mg/Tab Tab) 0.4 mg SL Q5M PRN PRN Reason: Chest Pain Stop: 05/20/24 09:05 Ondansetron HCl (Ondansetron Inj 2 Mg/Ml 2 Ml Vial) 4 mg IV Q6H PRN PRN Reason: Nausea Stop: 05/20/24 09:05 Pending Studies at Discharge: Yes Studies:: surgical pathology Stand-Alone Forms: My [facility] Skilled Items Patient informed of condition?: Yes DNR: No Discharge Level of Care: Other Communicable Disease: No Discharge Prognosis: Stable Lines: Peripheral IV Urinary Catheter: No Medications and DC Order Prescriptions: Continued levothyroxine 75 mcg tablet 75 mcg PO DAILY Discharge Orders: Discharge Order (Routine); Ordered 04/20/24 Ordered By: Romeo Christian Admission Data Admit Date/Time: 04/20/24 06:21 Attending Provider: Romeo Christian Admit Provider: Anjel Solorio Primary Care Provider: Josie Ha Other Providers: Anjel Solorio; Gerardo Goodrich; Antoni Benavides
--- NOTE | 2024-04-20 17:56 | Fluoroscopy Report ---
EXAM: [place] Fluoroscopy < 1 Hour INDICATION: ERCP TECHNIQUE: 17 minutes 25 seconds fluoroscopy utilized and 17 images obtained during ERCP. COMPARISON: No relevant prior studies available. FINDINGS: Probable postcholecystectomy. Common bile and pancreatic ducts grossly unremarkable. No ductal extravasation. IMPRESSION: Fluoroscopy during ERCP. No ductal obstruction or extravasation noted. ACT 112: Negative or not required by law. Electronically signed by Indy French 04-20-2024 5:56 PM
[2024-04-20 18:54] VITALS: RESP 16; TEMP 98.2
[2024-04-20 19:25] VITALS: BP 133/84; PULSE 92; O2SAT 98
== END 2024-04-20 19:45 | disposition short-term general hospital (02) | DRG 446 ==
LOC: ED 00:07 → EDINP 06:21 → INTOOBSV 06:21 → EDINP 13:34 → 3W 16:55